=== PATIENT | male | born 1950 | race Caucasian/White ===

== ENCOUNTER → 2020-08-21 06:35 | Outpatient (CLI) | payer MEDICARE, OTHER, SELFPAY ==
--- NOTE | 2020-08-21 | CA_ITS ---
APPROVED REPORT Exam: Pharmacologic Technologist: saul polk, Ht: 5 ft 11 in Wt: 202 lbs BSA: 2.12 m2 HR: 70 bpm BP: 153/87 mmHg Indications: SOA Medical History Medications: Omeprazole,,,,, Asa,,,,, Metformin,,,,, Crestor,,,,, DulOXETINE,,,,, OxYbutynin,,,,, ETODOLAC,,,,, ICOSAPENT,,,,, RIvaROXABAN,,,,, GlimepERIDE,,,,, DilTAiazem,,,,, Caevedilol,,,,, Allergies: Lipitor Cardiac Risk Factors: HTN, Hyperlipidemia, Diabetes (non-insulin) Stress Test Details Test: LEXISCAN HR Resting HR: 87 bpm Max Heart Rate (APMHR): 152 bpm Max HR Achieved: 111 bpm Target HR (85% APMHR): 129 bpm % of APMHR: 73 Recovery HR: 100 bpm BP Resting BP: 153/87 mmHg Max BP: 161/89 mmHg Recovery BP: 118.0/95.0 mmHg ECG Resting ECG: Sinus rhythm Clinical Exercise duration: 04:02 min Highest Stage Achieved: Stress ECG Conclusion Lexiscan portion completed. No symptoms. Occ PVC. Less than 1.5mm ST depression. Images to follow. Electronically signed by : Syd Dejesus, 08/21/2020 10:06:33
--- NOTE | 2020-08-21 06:35 | CA_ITS ---
APPROVED REPORT EXAM: Comprehensive 2D, Doppler, and color-flow Echocardiogram Wood Tool Maker: Aline Garcia RDCS Ht: 5 ft 11 in Wt: 202lbs BSA: 2.12 BP: 128/72 mmHg Indications: SOA,CAD,STENTS,H/O TIA 2D Dimensions LVOT 2.06 cm (M/F) 1.5-2.5 M-Mode Dimensions RVDd 3.01 cm (0.9-2.6) LA Diam 3.77 cm (1.9-4.0) LVDd 5.13 cm (3.5-5.7) Ao Diam 3.36 cm (2.0-3.7) LVDs 4.09 cm (3.5-5.7) IVSd 1.05 cm (0.6-1.1) PWd 0.96 cm (0.6-1.1) EF (Teich) 41.20% FS 20.30% EDV (Teich) 125.50 mL ESV (Teich) 73.80 mL LV Diastology E Decel Time 203.00 (160-240 msec) E/A Ratio 0.5 MED E' 3.00 (< 7 cm/sec) E'/MED E' Ratio 11.80 (>14) LAT E' 6.10 (<10 cm/sec) E/LAT E' Ratio 5.80 (>14) Mitral Valve MV E Max Esa. 35.00 (40-130 cm/s) MV A Velocity 71.00 (40-130 cm/s) E/A Ratio 0.50 MV Decel. Time 203.00 (160-240 ms) MV PHT 60.00 ms Left Ventricle Left atrium is mildly enlarged, left ventricle is normal size, mild concentric left ventricular hypertrophy, visually estimated ejection fraction approximately 40% with marked hypokinesis involving mid to distal septum and anterior apical wall. Grade 1 diastolic dysfunction seen without tissue Doppler evidence of raise left atrial pressure. Right Ventricle Right atrium and right ventricle are normal size and contractility. Aortic Valve Aortic valve is minimally thickened and fibrosed, there is no aortic stenosis, there is mild aortic insufficiency. Mitral Valve Mitral valve leaflets are minimally thickened, there is mild mitral regurgitation. Tricuspid Valve Tricuspid valve is grossly normal, there is mild tricuspid regurgitation, tricuspid regurgitation jet velocity is inadequate for calculation of the right ventricular systolic pressure. Pulmonic Valve Pulmonic valve is poorly visualized. Great Vessels Aortic root is normal size. Pericardium No significant pericardial effusion noted. Conclusion 1. Mildly enlarged left atrium, normal left ventricular size, mild concentric left ventricular hypertrophy, visually estimated ejection fraction 40% with multiple segmental wall motion abnormality described above, grade 1 diastolic dysfunction seen without tissue Doppler evidence of raise left atrial pressure. 2. Mild aortic, mild mitral and tricuspid regurgitation. 3. No significant pericardial effusion noted. Electronically signed by : Syd Dejesus, 08/21/2020 11:18:35
--- NOTE | 2020-08-21 06:35 | NM_ITS ---
APPROVED REPORT Exam: Nuclear Stress Test Indication: short of breath..fatigue Patient Location: Outpatient Stress Tech: Toya ClayCarmen [place] Tech:Angie PavonLEXIS RT(R)(N) Ht: 5 ft 11 in Wt: 202 lbs HR: 70 bpm BP: 152/87 mmHg BSA: 2.12 m2 BMI: 28.1 History: short of breath..fatigue Procedure: Patient received a 0.4 mg of intravenous Lexiscan, resting heart rate 70 bpm, resting blood pressure 153/87 mmHg, with Lexiscan maximum heart rate achived was 105 bpm which is Less than 85 % of the maximum predicted heart rate and blood pressure was 161/89 mmHg. With Lexiscan, patient denied any complaint of chest pain. Electrocardiogram Resting electrocardiogram shows sinus rhythm, with Lexiscan there is less than 1.[address] segment depression noted from baseline EKG. The EKG portion of the Lexiscan Myoview was nondiagnostic. Cardiac Stress and Resting SPECT Images: Cardiac Stress and Resting SPECT images were obtained using technetium 99m Myoview 32.4 mCi stress and 10.78 mCi at rest. Gated SPECT for analysis of segmental wall motion and calculation of the ejection fraction also done. Cardiac stress and resting SPECT images show moderate to large sized area of fixed defect involving the anterior, anterior apical apex and anteroseptal wall consistent with area of myocardial scarring without significant ruchi-infarct ischemia. Computer derived ejection fraction is 38% with marked hypokinesis involving the anterior apical and anteroseptal wall. Right ventricle is normal size and contractility. Conclusion: 1. The EKG portion of the Lexiscan is nondiagnostic. 2. Scintigraphic evidence of myocardial scarring involving the anterior apical, apex and anteroseptal wall without significant ruchi-infarct ischemia, computer derived ejection fraction is 38% with segmental wall motion abnormalities described above, right ventricle is normal size and contractility. 3. Abnormal Lexiscan Myoview study. Electronically signed by : Syd Dejesus, 08/21/2020 11:41:03
== END ==
PROVIDERS: PCP Family Medicine; Visit Provider Urology
DX: E78.5 Hyperlipidemia, unspecified (principal); I10 Essential (primary) hypertension; I25.10 Atherosclerotic heart disease of native coronary artery without angina pectoris; I25.2 Old myocardial infarction; I65.29 Occlusion and stenosis of unspecified carotid artery; Z86.73 Personal history of transient ischemic attack (TIA), and cerebral infarction without residual deficits; Z95.5 Presence of coronary angioplasty implant and graft
CPT/HCPCS: 78452; 93017; 93306; A9502; J2785

== ENCOUNTER 2020-09-03 08:06 | Day surgery (SDC) | payer MEDICARE, OTHER, SELFPAY ==
[2020-09-03] VITALS (10 sets, daily range): BP systolic 119–149; BP diastolic 84–101; PULSE 81–98; RESP 16–20; TEMP 36.4–36.6; O2SAT 91–99; BMI 28.5
--- NOTE | 2020-09-03 07:16 | IR_ITS ---
APPROVED REPORT Patient Location: Outpatient [facility] [place] Rover: LEXIS Haynes RT (R) PROCEDURES Left heart catheterization Left ventriculogram Selective coronary angiogram INDICATION Abnormal Myoview, Known coronary artery disease, Progressively worsening dyspnea/angina pectoris Informed consent was obtained prior to the procedure. COMPLICATIONS NONE Estimated Blood Loss: LESS TAHN 10 ML TECHNIQUE One percent lidocaine used to anesthetize the right anterior aspect of the wrist. The right radial artery was accessed via the Seldinger technique. A 6 [place] sheath was placed in the right radial artery. 2.5 mg of verapamil, 800 mcg of nitroglycerin, 1mg Lidocaine and 5000 U Heparin were given through the arterial sheath. The trap catheter was also used to perform left heart catheterization, left ventriculogram and selective coronary angiogram. At the end of the procedure the sheath was removed good hemostasis was achieved using Traclet band, patient was transferred to the postop holding area in stable condition. ANGIOGRAPHIC RESULTS The left main artery Normal The left anterior descending artery Is a stent in the proximal segment and mid segment in a contiguous manner with no angiographic evidence of in-stent restenosis. There is excellent proximal distal transitioning. The remaining LAD has a distal 40% and 60% stenosis in the vessel less than 2 mm in diameter. The stent in a large first diagonal artery branching off the proximal LAD stent is widely patent with excellent distal transitioning. The diagonal artery is a large vessel The circumflex artery Is nondominant gives rise to a moderate sized ramus intermedius which is widely patent. Circumflex artery itself is nondominant has a proximal 30% stenosis. A small first obtuse marginal artery has a mid vessel 50% stenosis in an area where the diameter is 1.5 mm in diameter The right coronary artery Is a large dominant vessel with mild to moderate diffuse vascular ectasia. There is a mid stenosis which is 50% stenosis when comparing to the vascular ectasia however the [place] vessel is consistent in size with the moderate size posterior descending artery. Stent in the posterior descending artery has mild to moderate concentric 30 to 40% in-stent restenosis. There are calcifications in the mid to distal posterior descending artery which creates 30 to 40% stenosis The [place] ventriculogram reveals Ejection fraction 50% The left ventricular end-diastolic pressure Severely elevated at 30 mmHg IMPRESSION Patent coronary arteries as described above Severely elevated LVEDP which almost certainly accounts for patient's dyspnea Ejection fraction 50% by LV gram PLAN 1. Treat diastolic dysfunction and elevated LVEDP which is etiology for patient's symptoms 2. Medical management for coronary disease Electronically signed by : Uvaldo Fonseca, 09/03/2020 12:41:16
[2020-09-03 08:45] LABS: Coronavirus 19, PCR Not Detected (NotDetected); Influenza A, PCR Not Detected (NotDetected); Influenza B, PCR Not Detected (NotDetected)
[2020-09-03 08:47] LABS: Basophils # 0.1 K/mm3 (0-0.2); Basophils % 0.6 % (0.1-2.0); Eosinophils # 0.5 K/mm3 (0.0-0.4); Hematocrit 39.8 % (42.0-52.0); Hemoglobin 12.9 g/dL (14.1-18.0); Lymphocytes # 1.1 K/mm3 (0.7-4.5); Lymphocytes % 14.2 % (10-50); Mean Corpuscular HGB Conc 32.4 g/dL (31.8-35.4); Mean Corpuscular Hemoglobin 27.8 pg (27.0-31.2); Mean Corpuscular Volume 85.9 fl (80-94); Mean Platelet Volume 8.1 fl (7.4-10.4); Monocytes # 0.5 K/mm3 (0.1-1.0); Monocytes % 6.4 % (1.7-9.3); Neutrophils # 5.6 K/mm3 (1.8-7.8); Neutrophils % 71.8 % (37.0-80.0); Platelet Count 280 K/mm3 (142-424); Red Blood Count 4.63 M/mm3 (4.60-6.20); Red Cell Distribution Width 15.4 % (11.5-17.5); White Blood Count 7.8 K/mm3 (4.8-10.8)
[2020-09-03 08:55] LABS: Anion Gap 14.3 mEq/L (5-15); Blood Urea Nitrogen 22 mg/dl (9-20); Carbon Dioxide 31 mmol/L (22.0-30.0); Chloride 99 mmol/L (98-107); Creatinine Clearance Estimated 62 mL/min (50-200); Estimated Glomerular Filt Rate 47 ml/min (>60); GFR (African American) 56 ML/MIN (>60); Glucose 209 mg/dl (74-100); Potassium 4.3 mmoL/L (3.5-5.1); Sodium 140 mmol/L (136-145)
== END 2020-09-03 13:23 | disposition home or self-care (01) ==
LOC: CATHLAB 08:07
PROVIDERS: PCP Family Medicine; Visit Provider Internal Medicine
DX: I25.5 Ischemic cardiomyopathy (principal); R93.1 Abnormal findings on diagnostic imaging of heart and coronary circulation; E11.9 Type 2 diabetes mellitus without complications; Z79.84 Long term (current) use of oral hypoglycemic drugs; Z79.01 Long term (current) use of anticoagulants; I25.118 Atherosclerotic heart disease of native coronary artery with other forms of angina pectoris; T82.855A Stenosis of coronary artery stent, initial encounter; Z95.5 Presence of coronary angioplasty implant and graft; Z20.822 Contact with and (suspected) exposure to COVID-19; Y83.1 Surgical operation with implant of artificial internal device as the cause of abnormal reaction of the patient, or of later complication, without mention of misadventure at the time of the procedure
CPT/HCPCS: 80048; 85025; 93458; 99152; C1725; C1769; J1644; Q9967; U0003

== ENCOUNTER → 2020-10-05 12:10 | Outpatient (CLI) | payer MEDICARE, OTHER, SELFPAY | PROVIDERS: PCP Family Medicine; Visit Provider Nurse Practitioner Family | DX: G47.9 Sleep disorder, unspecified (principal); R40.0 Somnolence; G47.33 Obstructive sleep apnea (adult) (pediatric) | CPT/HCPCS: G0399 ==

== ENCOUNTER → 2020-10-27 14:45 | Outpatient (CLI) | payer MEDICARE, OTHER, SELFPAY ==
[2020-10-27 16:23] LABS: Anion Gap 15.2 mEq/L (5-15); Blood Urea Nitrogen 24 mg/dl (9-20); Calcium 9.9 mg/dl (8.4-10.2); Carbon Dioxide 29 mmol/L (22.0-30.0); Chloride 102 mmol/L (98-107); Estimated Glomerular Filt Rate 43 ml/min (>60); GFR (African American) 52 ML/MIN (>60); Glucose 102 mg/dl (74-100); Potassium 4.2 mmoL/L (3.5-5.1); Sodium 142 mmol/L (136-145)
[2020-10-27 18:12] LABS: Free Thyroxine Index 2.4 ug/dL (5.93-13.13); T4 (Thyroxine) 7.6 ug/dl (5.53-11.0); Triiodothryronine (T3) Uptake 32 % (23.5-40.5)
[2020-10-27 18:26] LABS: Thyroid Stimulating Hormone 1.58 uIU/mL (0.465-4.68)
== END ==
PROVIDERS: Visit Provider Physician Assistant
DX: E78.2 Mixed hyperlipidemia (principal); I10 Essential (primary) hypertension; I25.10 Atherosclerotic heart disease of native coronary artery without angina pectoris; I49.9 Cardiac arrhythmia, unspecified; I65.23 Occlusion and stenosis of bilateral carotid arteries; Z86.73 Personal history of transient ischemic attack (TIA), and cerebral infarction without residual deficits
CPT/HCPCS: 36415; 80048; 84436; 84443; 84479; 93225; 93226

== ENCOUNTER → 2020-11-25 14:32 | Outpatient (CLI) | payer MEDICARE, OTHER, SELFPAY ==
[2020-11-25 16:29] LABS: Albumin Level 4.1 g/dl (3.5-5.0); Alkaline Phosphatase 82 U/L (38-126); Aspartate Amino Transferase 30 U/L (17-59); Bilirubin,Direct 0.4 mg/dl (0.0-0.4); Bilirubin,Total 0.4 mg/dl (0.2-1.3); Chol/HDL Ratio 4.3 (1-3.5); Cholesterol 138 mg/dl (140-200); HDL Cholesterol 32 mg/dl (40-60); Total Protein,Serum 8.1 g/dl (6.3-8.2); Triglycerides 214 mg/dl (30-150); VLDL Cholesterol 43 mg/dL (0-40)
[2020-11-25 16:36] LABS: Direct LDL Cholesterol 60.19 mg/dL (100-129)
[2020-11-25 16:57] LABS: Alanine Aminotransferase 25 U/L (12-78)
== END ==
PROVIDERS: Visit Provider Urology
DX: C61 Malignant neoplasm of prostate (principal); E11.9 Type 2 diabetes mellitus without complications; E78.5 Hyperlipidemia, unspecified; G47.33 Obstructive sleep apnea (adult) (pediatric); I10 Essential (primary) hypertension; I25.10 Atherosclerotic heart disease of native coronary artery without angina pectoris; I25.2 Old myocardial infarction; I49.9 Cardiac arrhythmia, unspecified; I65.29 Occlusion and stenosis of unspecified carotid artery; Z86.73 Personal history of transient ischemic attack (TIA), and cerebral infarction without residual deficits; Z95.5 Presence of coronary angioplasty implant and graft; Z79.84 Long term (current) use of oral hypoglycemic drugs
CPT/HCPCS: 36415; 80061; 80076

== ENCOUNTER → 2021-03-31 10:37 | Outpatient (CLI) | payer MEDICARE, OTHER, SELFPAY | PROVIDERS: PCP Family Medicine; Visit Provider Physician Assistant | DX: R06.00 Dyspnea, unspecified (principal); R42 Dizziness and giddiness; I49.9 Cardiac arrhythmia, unspecified | CPT/HCPCS: 93270 ==

== ENCOUNTER → 2021-05-28 13:32 | Outpatient (CLI) | payer MEDICARE, OTHER, SELFPAY | PROVIDERS: PCP Family Medicine; Visit Provider Internal Medicine Cardiovascular Disease | DX: I48.0 Paroxysmal atrial fibrillation (principal) | CPT/HCPCS: 93270 ==

== ENCOUNTER → 2021-11-16 07:38 | Outpatient (CLI) | payer MEDICARE, OTHER, SELFPAY ==
--- NOTE | 2021-11-16 | CA_ITS ---
APPROVED REPORT Exam: Pharmacologic Technologist: Gi Almanza, Ht: 5 ft 11 in Wt: 201 lbs BSA: 2.11 m2 HR: 71 bpm BP: 155/79 mmHg Rhythm: NSR, RIGHTWARD AXIS CANNOT R/O SEPTAL OR Medical History Medical History: HTN, Hyperlipidemia, Diabetes Medications: Omeprazole,,,,, Aspirin,,,,, Verapamil,,,,, Metformin,,,,, Coenzyme,,,,, Crestor,,,,, XaRELTO,,,,, Coreg,,,,, CHlorthalidone,,,,, DulOXETINE,,,,, Meclizine,,,,, JanuIVA,,,,, Allergies: ATORVASTATIN Cardiac Risk Factors: HTN, , Hyperlipidemia, Diabetes , FHX of CAD Stress Test Details Test: LEXISCAN HR Resting HR: 73 bpm Max Heart Rate (APMHR): 151.339239 bpm Max HR Achieved: 98 bpm Target HR (85% APMHR): 128.418197 bpm % of APMHR: 64.90 Recovery HR: 86 bpm BP Resting BP: 155/79 mmHg Max BP: 158/89 mmHg Recovery BP: 138.0/85.0 mmHg ECG Resting ECG: NSR, RIGHTWARD AXIS, CANNOT R/O OLD SEPTAL OR Clinical Exercise duration: 04:00 min Highest Stage Achieved: Exercise capacity: 1.0 METs Stress ECG Conclusion PT HAD SOA, STOMACH DISCOMFORT NO CP NO SIGNIFICANT CHANGES UNREMARKABLE LEXISCAN STRESS MYOVIEW IMAGES REPORTED SEPARATELY Electronically signed by : Syd Dejesus MD 11/17/2021 06:07:54
--- NOTE | 2021-11-16 07:38 | NM_ITS ---
APPROVED REPORT Exam: Nuclear Stress Test Indication: CAD, 4 STENTS, H/O IA, HTN, DM, HYPERLIPIDEMIA, SOB, SYNCOPE Patient Location: Outpatient Stress Tech: Gi Almanza [place] Tech:LEXIS Carmona RT (R)(N)(M) Ht: 5 ft 11 in Wt: 200 lbs HR: 71 bpm BP: 155/79 mmHg BSA: 2.11 m2 TID: 1.18 BMI: 27.8 History: CAD, 4 STENTS, H/O IA, HTN, DM, HYPERLIPIDEMIA, SOB, SYNCOPE Procedure: Patient received a 0.4 mg of intravenous Lexiscan, resting heart rate 71 bpm, resting blood pressure 155/79 mmHg, with Lexiscan maximum heart rate achived was 96 bpm which is 85 % of the maximum predicted heart rate and blood pressure was 147/77 mmHg. With Lexiscan, patient denied any complaint of chest pain. Electrocardiogram Resting electrocardiogram shows sinus rhythm anteroseptal infarct age-indeterminate, with Lexiscan there is less than 1.[address] segment depression noted from the baseline EKG. The EKG portion of the Lexiscan is nondiagnostic. Cardiac Stress and Resting SPECT Images: Cardiac Stress and Resting SPECT images were obtained using technetium 99m Myoview 31.6 mCi stress and 10.69 mCi at rest. Gated SPECT for analysis of segmental wall motion and calculation of the ejection fraction also done. Prone images were also obtained. Cardiac stress and rest SPECT images show partial reversible defect and moderate sized area involving the anterior apical, and anteroseptal wall consistent with area of mixed ischemia and scar, computer derived ejection fraction of 38% with moderate anterior apical and anteroseptal wall hypokinesis, right ventricle is normal size and contractility. Conclusion: 1. The EKG portion of the Lexiscan is nondiagnostic. 2. Scintigraphic evidence of mixed ischemia and scar involving the anterior apical and anteroseptal wall, computer derived ejection fraction is 38% with segmental wall motion abnormality as described above, right ventricle is normal size and contractility. 3. Abnormal Lexiscan Myoview study. Electronically signed by : Syd Dejesus MD 11/17/2021 06:11:15
--- NOTE | 2021-11-16 07:54 | CA_ITS ---
APPROVED REPORT EXAM: Comprehensive 2D, Doppler, and color-flow Echocardiogram Soil Engineer: Macey Dee CRT Ht: 5 ft 11 in Wt: 201lbs BSA: 2.11 BP: 138/75 mmHg Indications: Shortness of Breath, Diabetes, CAD, Hyperlipidemia, Hypertension/HDD, hx TIA 2D Dimensions LVOT 2.01 cm (M/F) 1.5-2.5 LA Volume 44.10 mL LA Volume Index 20.90 mL/m2 (M/F) 16-34 M-Mode Dimensions RVDd 3.01 cm (0.9-2.6) LA Diam 3.93 cm (1.9-4.0) LVDd 5.18 cm (3.5-5.7) Ao Diam 5.13 cm (2.0-3.7) LVDs 3.54 cm (3.5-5.7) IVSd 1.81 cm (0.6-1.1) PWd 1.04 cm (0.6-1.1) EF (Teich) 59.30% FS 31.70% EDV (Teich) 128.40 mL TAPSE 2.82 (<1.7) ESV (Teich) 52.30 mL LV Diastology E Decel Time 177.00 (160-240 msec) E/A Ratio 0.68 MED E' 5.10 (< 7 cm/sec) MED A' 8.40 cm/s E'/MED E' Ratio 12.10 (>14) LAT E' 5.70 (<10 cm/sec) LAT A' 10.50 cm/s E/LAT E' Ratio 10.82 (>14) Aortic Valve AI PHT 474.00 ms AO Peak GR. 4.00 mmHg Mitral Valve MV E Max Esa. 62.00 (40-130 cm/s) MV A Velocity 91.00 (40-130 cm/s) E/A Ratio 0.68 MV Decel. Time 177.00 (160-240 ms) MV PHT 52.00 ms Pulmonary Valve PV Peak Velocity 163.00 (50-150 cm/s) Tricuspid Valve TR P. Velocity 192.00 cm/s RAP Estimate 10.00 mmHg RVSP 24.70 mmHg Left Ventricle Left atrium is mildly enlarged, left ventricle is normal size mild concentric left ventricular hypertrophy, estimated ejection fraction approximately 40 to 45%, there is marked hypokinesis involving mid to distal septum and anterior apical wall. Grade 1 diastolic dysfunction seen without tissue Doppler evidence of raise left atrial pressure. Right Ventricle Right atrium and right ventricle are mildly enlarged with normal contractility. Aortic Valve Aortic valve is thickened and calcified without aortic stenosis, there is trace aortic insufficiency. Mitral Valve Mitral valve leaflets are minimally thickened, there is trace mitral regurgitation. Tricuspid Valve Tricuspid valve grossly normal, there is trace tricuspid regurgitation. Pulmonic Valve Pulmonic valve is poorly visualized. Great Vessels Aortic root is normal size. Inferior vena cava is normal size with normal contractility. Pericardium No significant pericardial effusion noted. Conclusion 1. Mild biatrial enlargement, normal left ventricular size, mild concentric left ventricular hypertrophy, estimated ejection fraction 40 to 45% with multiple segmental wall motion abnormality described above, grade 1 diastolic dysfunction seen without tissue Doppler evidence of raise left atrial pressure. 2. Mildly enlarged right ventricle with normal contractility. 3. Thickened and calcified aortic valve without aortic stenosis, there is trace aortic insufficiency. 4. Trace mitral and tricuspid regurgitation. 5. No significant pericardial effusion noted. 6. Inferior vena cava is normal size with normal inspiratory collapse. Electronically signed by : Syd Dejesus MD 11/16/2021 19:13:12
== END ==
PROVIDERS: PCP Family Medicine; Visit Provider Nurse Practitioner Family
DX: E11.9 Type 2 diabetes mellitus without complications (principal); E78.2 Mixed hyperlipidemia; I10 Essential (primary) hypertension; I25.10 Atherosclerotic heart disease of native coronary artery without angina pectoris; I25.2 Old myocardial infarction; R42 Dizziness and giddiness; Z86.73 Personal history of transient ischemic attack (TIA), and cerebral infarction without residual deficits; Z95.5 Presence of coronary angioplasty implant and graft; Z79.84 Long term (current) use of oral hypoglycemic drugs
CPT/HCPCS: 78452; 93017; 93306; A9502; J2785

== ENCOUNTER 2021-11-29 08:08 | Day surgery (SDC) | payer MEDICARE, OTHER, SELFPAY ==
[2021-11-29] VITALS (13 sets, daily range): BP systolic 103–184; BP diastolic 51–101; PULSE 61–81; RESP 17–18; O2SAT 92–98; BMI 29.4
--- NOTE | 2021-11-29 07:08 | IR_ITS ---
APPROVED REPORT Patient Location: Outpatient Sales Commissions Analyst: LEXIS Chacon RT (R) PROCEDURES Left heart catheterization Left ventriculogram Selective coronary angiogram Drug-eluting stent deployment to the proximal mid dominant right coronary INDICATION Coronary artery disease, Angina pectoris, Abnormal Myoview Informed consent was obtained prior to the procedure. COMPLICATIONS None Estimated Blood Loss: Less than 10 mls TECHNIQUE One percent lidocaine used to anesthetize the right anterior aspect of the wrist. The right radial artery was accessed via the Seldinger technique. A 6 [place] sheath was placed in the right radial artery. 2.5 mg of verapamil, 800 mcg of nitroglycerin, 1mg Lidocaine and 5000 U Heparin were given through the arterial sheath. The papa catheter was also used to perform selective coronary angiogram. At the end the diagnostic angiogram therapeutic heparin was administered giving a therapeutic ACT and the guide catheter was placed in the right coronary artery followed by a Choice PT extra-support wire. Initially a 5 mm x 26 mm resolute [place] stent was deployed in the proximal segment. The stent would not completely traverse the stenosis without performing angioplasty. When the stent was pulled back it was immediately noticed that it was starting to slip off the balloon therefore the balloon was immediately inflated at 20 maría while leaving approximately 5 mm of an deployed distal stent. A guide liner was used along with a 1.25 x 20 mm balloon being advanced into the on deployed portion of the stent. This was deployed at 20 maría. This was followed with a 2 mm x 20 mm balloon and then followed with a 3 mm x 20 mm balloon. The 3 mm balloon expanded the distal portion of the stent as well as predilated the concentric stenosis. Eventually a 5 mm x 18 mm resolute [place] stent was then deployed distal to the first stent if still overlapping it at 24 maría. The balloon was brought back and deployed at 24 maría through the midportion and proximal portion of all stents. There were excellent angiographic results with JACOB-3 flow being present before and after the procedure. At the end the procedure the apparatus was removed the sheath was removed good hemostasis was achieved using TR banding patient was transferred to the postop putting in stable addition ANGIOGRAPHIC RESULTS The left main artery Normal The left anterior descending artery Has a stent in the proximal to mid segment which is widely patent free of in-stent restenosis with excellent proximal distal transitioning. A bifurcating stent in the ostial segment of the first diagonal artery is also widely patent with excellent ostial and distal transitioning. The distal portion of this large first diagonal artery has 50 and 60% stenoses The circumflex artery Is a nondominant vessel and gives rise to a ramus intermedius which has proximal 30% stenoses while the circumflex artery itself has proximal 30% stenosis in the distal 50% stenosis and a 2 mm terminal obtuse marginal artery The right coronary artery Is a massively large dominant vessel has a 70% concentric mid vessel stenosis. Distally there are additional 60 and 70% stenosis in a large posterior descending artery with diffuse 30 and 40% stenoses. The BA[place]A ventriculogram reveals Not performed The left ventricular end-diastolic pressure Not measured IMPRESSION Severe proximal and mid vessel dominant right coronary stenosis with successful stenting reducing the severe disease to 0% with 2 contiguous drug-eluting stents Widely patent left coronary artery circulation as described above PLAN 1. Dual antiplatelet therapy with Plavix 75 mg a day combined with Xarelto for
[2021-11-29 08:40] LABS: Basophils % 0.7 % (0.1-2.0); Eosinophils # 0.3 K/mm3 (0.0-0.4); Eosinophils % 4.6 % (0.1-12.0); Hematocrit 30.9 % (42.0-52.0); Hemoglobin 9.5 g/dL (14.1-18.0); Lymphocytes # 0.8 K/mm3 (0.7-4.5); Lymphocytes % 13.6 % (10-50); Mean Corpuscular HGB Conc 30.6 g/dL (31.8-35.4); Mean Corpuscular Hemoglobin 22.1 pg (27.0-31.2); Mean Corpuscular Volume 72.2 fl (80-94); Mean Platelet Volume 8.9 fl (7.4-10.4); Monocytes # 0.3 K/mm3 (0.1-1.0); Neutrophils # 4.3 K/mm3 (1.8-7.8); Neutrophils % 75.2 % (37.0-80.0); Platelet Count 242 K/mm3 (142-424); Red Blood Count 4.28 M/mm3 (4.60-6.20); Red Cell Distribution Width 19.2 % (11.5-17.5); White Blood Count 5.7 K/mm3 (4.8-10.8)
[2021-11-29 08:44] LABS: Chloride 101 mmol/L (98-107); Sodium 140 mmol/L (136-145)
[2021-11-29 08:45] LABS: Potassium 4.3 mmoL/L (3.5-5.1)
[2021-11-29 08:48] LABS: Anion Gap 13.3 mEq/L (5-15); Blood Urea Nitrogen 21 mg/dl (9-20); Calcium 8.9 mg/dl (8.4-10.2); Carbon Dioxide 30 mmol/L (22.0-30.0); Creatinine Clearance Estimated 52 mL/min (50-200); Estimated Glomerular Filt Rate 38 ml/min (>60); GFR (African American) 45 ML/MIN (>60); Glucose 207 mg/dl (74-100)
[2021-11-29 09:19] LABS: Thyroid Stimulating Hormone 2.36 uIU/mL (0.465-4.68)
[2021-11-29 09:31] LABS: Alanine Aminotransferase 23 U/L (12-78); Alkaline Phosphatase 94 U/L (38-126); Aspartate Amino Transferase 24 U/L (17-59); Bilirubin,Direct 0.3 mg/dl (0.0-0.4); Bilirubin,Indirect 0.1 mg/dL (0.0-0.9); Bilirubin,Total 0.4 mg/dl (0.2-1.3); Bilirubin,Unconjugated 0.1 mg/dL (0.0-1.1); Cholesterol 163 mg/dl (140-200); Total Protein,Serum 7.8 g/dl (6.3-8.2); Triglycerides 129 mg/dl (30-150); VLDL Cholesterol 26 mg/dL (0-40)
[2021-11-29 09:32] LABS: Chol/HDL Ratio 4.2 (1-3.5); HDL Cholesterol 39 mg/dl (40-60); Magnesium 1.8 mg/dl (1.6-2.3)
[2021-11-29 09:43] LABS: Direct LDL Cholesterol 83.47 mg/dL (100-129)
[2021-11-29 09:49] LABS: Free T4 (Free Thyroxine) 0.94 ng/dl (0.78-2.19)
[2021-11-29 13:06] LABS: CATHL Activated Clotting Time 215 SEC (74-125)
--- NOTE | 2021-11-29 15:00 | HMH.PHACL ---
PHA Assistant Media Planner Discharge Med Die Grinder: [place] has received discharge medication counseling on the following medications: - ASPIRIN (PREVIOUSLY TAKING) - PLAVIX (NEW, COUNSELED ON INCREASED RISK OF BLEEDING ESPECIALLY WHEN TAKING ASA AND XARELTO, TAKE ALL 3 BLOOD THINNERS FOR 30 DAYS AND THEN STOP ASA, WILL HAVE F/U WITH PROVIDER BEFORE 30 DAYS BUT TO CONFIRM THAT DISCONTINUATION OF ASA AT F/U) - XARELTO (PREVIOUSLY TAKING) -ROSUVASTATIN (PREVIOUSLY TAKING) - VALSARTAN (PREVIOUSLY TAKING) - CARVEDILOL (PREVIOUSLY TAKING) PATIENT EXPRESSED UNDERSTANDING AND HAD NO FURTHER QUESTIONS.
== END 2021-11-29 15:28 | disposition home or self-care (01) ==
PROVIDERS: Nurse Practitioner Family; PCP Family Medicine; Visit Provider Internal Medicine
DX: I25.118 Atherosclerotic heart disease of native coronary artery with other forms of angina pectoris (principal); R94.39 Abnormal result of other cardiovascular function study; E11.9 Type 2 diabetes mellitus without complications; E78.2 Mixed hyperlipidemia; I10 Essential (primary) hypertension; I25.2 Old myocardial infarction; Z86.73 Personal history of transient ischemic attack (TIA), and cerebral infarction without residual deficits; Z95.5 Presence of coronary angioplasty implant and graft; Z79.899 Other long term (current) drug therapy; Z79.01 Long term (current) use of anticoagulants
CPT/HCPCS: 36415; 80048; 80061; 80076; 83735; 84439; 84443; 85025; 85347; 92928; 93458; 99152; 99153; C1725; C1769; C1876; C9600; J1644; Q9967

== ENCOUNTER 2021-12-14 09:41 | Outpatient (RCR) | payer MEDICARE, OTHER, SELFPAY | END 2022-02-04 10:45 | disposition home or self-care (01) | LOC: PT 09:41 | PROVIDERS: Visit Provider Internal Medicine | DX: I25.10 Atherosclerotic heart disease of native coronary artery without angina pectoris (principal); Z95.5 Presence of coronary angioplasty implant and graft | CPT/HCPCS: 93798 ==

== ENCOUNTER → 2021-12-15 14:29 | Outpatient (CLI) | payer MEDICARE, OTHER, SELFPAY ==
[2021-12-15 17:00] LABS: Chloride 100 mmol/L (98-107); Potassium 4.2 mmoL/L (3.5-5.1); Sodium 140 mmol/L (136-145)
[2021-12-15 17:03] LABS: Anion Gap 15.2 mEq/L (5-15); Blood Urea Nitrogen 26 mg/dl (9-20); Calcium 9.4 mg/dl (8.4-10.2); Carbon Dioxide 29 mmol/L (22.0-30.0); Estimated Glomerular Filt Rate 33 ml/min (>60); GFR (African American) 40 ML/MIN (>60); Glucose 166 mg/dl (74-100)
== END ==
PROVIDERS: PCP Family Medicine; Visit Provider Physician Assistant
DX: E11.9 Type 2 diabetes mellitus without complications (principal); E78.2 Mixed hyperlipidemia; G47.33 Obstructive sleep apnea (adult) (pediatric); I10 Essential (primary) hypertension; I25.10 Atherosclerotic heart disease of native coronary artery without angina pectoris; I25.2 Old myocardial infarction; R06.09 Other forms of dyspnea; Z86.73 Personal history of transient ischemic attack (TIA), and cerebral infarction without residual deficits; Z95.5 Presence of coronary angioplasty implant and graft; Z79.84 Long term (current) use of oral hypoglycemic drugs
CPT/HCPCS: 36415; 80048

== ENCOUNTER → 2021-12-27 13:03 | Outpatient (CLI) | payer MEDICARE, OTHER, SELFPAY ==
[2021-12-27 17:33] LABS: Anion Gap 19.5 mEq/L (5-15); Blood Urea Nitrogen 27 mg/dl (9-20); Calcium 10.1 mg/dl (8.4-10.2); Carbon Dioxide 28 mmol/L (22.0-30.0); Chloride 98 mmol/L (98-107); Estimated Glomerular Filt Rate 31 ml/min (>60); GFR (African American) 38 ML/MIN (>60); Glucose 114 mg/dl (74-100); Potassium 4.5 mmoL/L (3.5-5.1); Sodium 141 mmol/L (136-145)
== END ==
PROVIDERS: PCP Family Medicine; Visit Provider Physician Assistant
DX: E78.2 Mixed hyperlipidemia (principal); I25.10 Atherosclerotic heart disease of native coronary artery without angina pectoris; I25.2 Old myocardial infarction
CPT/HCPCS: 36415; 80048

== ENCOUNTER → 2022-01-12 09:40 | Outpatient (CLI) | payer MEDICARE, OTHER, SELFPAY ==
[2022-01-12 10:31] LABS: Basophils % 0.5 % (0.1-2.0); Eosinophils # 0.3 K/mm3 (0.0-0.4); Eosinophils % 4.3 % (0.1-12.0); Hematocrit 30.3 % (42.0-52.0); Hemoglobin 9.3 g/dL (14.1-18.0); Lymphocytes # 0.9 K/mm3 (0.7-4.5); Lymphocytes % 15.2 % (10-50); Mean Corpuscular HGB Conc 30.7 g/dL (31.8-35.4); Mean Corpuscular Hemoglobin 22.2 pg (27.0-31.2); Mean Corpuscular Volume 72.4 fl (80-94); Mean Platelet Volume 8.9 fl (7.4-10.4); Monocytes # 0.4 K/mm3 (0.1-1.0); Monocytes % 7.3 % (1.7-9.3); Neutrophils # 4.2 K/mm3 (1.8-7.8); Neutrophils % 72.7 % (37.0-80.0); Platelet Count 246 K/mm3 (142-424); Red Blood Count 4.18 M/mm3 (4.60-6.20); Red Cell Distribution Width 18.3 % (11.5-17.5); White Blood Count 5.7 K/mm3 (4.8-10.8)
[2022-01-12 10:52] LABS: Anion Gap 14.3 mEq/L (5-15); Blood Urea Nitrogen 25 mg/dl (9-20); Calcium 9.8 mg/dl (8.4-10.2); Carbon Dioxide 27 mmol/L (22.0-30.0); Chloride 103 mmol/L (98-107); Estimated Glomerular Filt Rate 31 ml/min (>60); GFR (African American) 38 ML/MIN (>60); Glucose 231 mg/dl (74-100); Potassium 4.3 mmoL/L (3.5-5.1); Sodium 140 mmol/L (136-145)
== END ==
PROVIDERS: PCP Family Medicine; Visit Provider Physician Assistant
DX: E11.9 Type 2 diabetes mellitus without complications (principal); E78.2 Mixed hyperlipidemia; G47.33 Obstructive sleep apnea (adult) (pediatric); I10 Essential (primary) hypertension; I25.10 Atherosclerotic heart disease of native coronary artery without angina pectoris; I25.2 Old myocardial infarction; R06.09 Other forms of dyspnea; Z86.73 Personal history of transient ischemic attack (TIA), and cerebral infarction without residual deficits; Z95.5 Presence of coronary angioplasty implant and graft; Z79.84 Long term (current) use of oral hypoglycemic drugs
CPT/HCPCS: 36415; 80048; 85025

== ENCOUNTER 2022-01-27 12:35 | Day surgery (SDC) | payer MEDICARE, OTHER, SELFPAY ==
--- NOTE | 2022-01-21 09:02 | SUR.PREOP ---
Spoke w/ Dagmar - Cardiology- patient to stop plavix- 5days, Xarelto-2 days
[2022-01-21 09:04] VITALS: BMI 29.4
[2022-01-27 13:04] VITALS: BP 156/68; PULSE 71; RESP 18; TEMP 36.6; O2SAT 97
--- NOTE | 2022-01-27 13:51 | EXP.ANES.CKL ---
[facility] Disclaimer: The information contained in this section may have been updated after the patient was seen, as this information can be updated by other users. Medical History Abnormal nuclear stress test Atypical angina Cardiac dysrhythmia Coronary artery disease Coronary artery stenosis Dizziness History of CT (myocardial infarction) History of TIA (transient ischemic attack) HLD (hyperlipidemia) HTN (hypertension) JUSTICE (obstructive sleep apnea) Surgical History History of cardiac catheterization History of coronary artery stent placement Hx of prostatectomy Family History Brother Colon cancer Other Family history of hyperlipidemia Social History Smoking Status: Never smoker second hand exposure: No alcohol intake: never substance use type: denies use current occupational status: retired Travel in the last 8 weeks: None household members: spouse housing: house lives independently: Yes marital status: current occupational exposures/hazards: No caffeine: Yes special mariangel needs: No agree to transfusion: No do you feel safe at home: Yes victim of physical abuse: No victim of emotional abuse: No victim of sexual abuse: No would you like helpful sources: No [facility] Anesthesia Checklist Patient Identification Patient Identification: Arm Band Structural Data Admitted From: Home Planned Operative Procedure/s: Colonoscopy Consent for Planned Operative Procedure(s) Verified: Yes Verified Documents: Surgical Consent NPO Status Verified Time NPO: 05:00 Airway Assessment C-Spine Mobility Assessed: Yes TMJ Mobility Assessed: Yes Neurological Assessment Level of Consciousness: Awake, Alert and Appropriate Anesthesia Plan Anesthesia Risk discussed: Yes ASA Class: III Anesthesia Type: MAC
[2022-01-27 14:08] VITALS: O2SAT 97
[2022-01-27 14:35] VITALS: BP 93/60; PULSE 71; RESP 16; TEMP 36.5; O2SAT 95
--- NOTE | 2022-01-27 14:35 | HMH.SCOPE ---
Procedure: Date: 01/27/22 Patient Date of :: 1950 Procedure Performed:: Colonoscopy and polypectomy Indications:: Anemia Performing Provider:: Yue Narvaez MD Referring Provider:: Maxwell Mccormack Sedation:: Propofol Procedure:: After placing the patient in the left lateral decubitus position, the colonoscopy was gently inserted into the rectum and under direct visualization advanced to the cecum which was identified by transillumination in the right lower quadrant, identification of the ileocecal valve, appendiceal orifice, and cecal strap. Color, texture, mucosa, and anatomy of the colon were carefully examined with the scope. Findings:: Anal canal: normal Rectum: normal Sigmoid colon: normal, polyps x 3 removed with forceps and cold snare Descending colon: normal without polyps or inflammatory changes Splenic flexure: normal Transverse colon: normal without polyps or inflammatory changes Hepatic flexure: normal Ascending colon: normal without polyps or inflammatory changes Cecum: normal Terminal ileum: not visualized Impression: sigmoid polyps x 3 Specimens:: Sigmoid polyps Recommendations:: Repeat evaluation in about THREE years or so, sooner if clinically indicated Complications:: None Estimated blood obtained (mL): 0
[2022-01-27 14:45] VITALS: BP 106/70; PULSE 70; RESP 17; O2SAT 100
[2022-01-27 14:55] VITALS: BP 134/74; PULSE 75; RESP 16; O2SAT 97
[2022-01-27 15:06] VITALS: BP 136/72; PULSE 70; RESP 17; O2SAT 100
[2022-01-28 07:37] LABS: POC Glucose,Bedside 148 (70-110)
== END 2022-01-27 15:15 | disposition home or self-care (01) ==
PROVIDERS: PCP Family Medicine; Visit Provider Internal Medicine Gastroenterology
PROC: 0DJD8ZZ Inspection of Lower Intestinal Tract, Via Natural or Artificial Opening Endoscopic (ICD-10-PCS; CPT 45378; principal; 2022-01-27 14:00)
DX: D64.9 Anemia, unspecified (principal); D12.5 Benign neoplasm of sigmoid colon; E11.9 Type 2 diabetes mellitus without complications; Z79.899 Other long term (current) drug therapy
CPT/HCPCS: 45385; 82962; 88305

== ENCOUNTER 2022-06-20 10:57 | Emergency (ER) | payer MEDICARE, OTHER, SELFPAY ==
[2022-06-20 11:10] VITALS: BP 126/81; PULSE 84; RESP 20; O2SAT 95; BMI 29.0
--- NOTE | 2022-06-20 11:14 | XR_ITS ---
FINAL REPORT CLINICAL HISTORY: FELL, rt knee pain FINDINGS: RIGHT KNEE 3 views of the right knee were obtained. There is no acute fracture or dislocation. There are mild degenerative changes. Sclerotic area is seen in the distal femur which could represent enchondroma or infarct. Vascular calcifications are noted. Visualized joint spaces are normally aligned. Soft tissues are unremarkable. IMPRESSION: No acute bony abnormality. Reviewed, Interpreted and Dictated by Nimesh Giang III, MD Transcribed by Heena Little Authenticated and [facility]
[2022-06-20 11:20] VITALS: BP 126/81; PULSE 84; RESP 20; TEMP 36.8; O2SAT 95; BMI 29.1
--- NOTE | 2022-06-20 11:24 | EXP.UTC ---
Discharge Plan Disposition Patient Disposition: Home, Self-Care Condition: Good Prescriptions Prescriptions: New cephalexin 500 mg capsule 500 mg PO QID Qty: 40 0RF mupirocin 2 % ointment 1 applic topical TID 7 Days Qty: 15 0RF No Action Januvia 100 mg tablet 100 mg PO DAILY Label Comments: TAKE 1 TABLET 1 TIME EACH DAY omeprazole 20 mg capsule,delayed release(DR/EC) 20 mg PO DAILY etodolac 400 mg tablet 400 mg PO BID glimepiride 4 mg tablet 4 mg PO BID metformin 1,000 mg tablet 1,000 mg PO BID coenzyme Q10 200 mg/gram oral powder 200 mg/gram powder 200 mg PO DAILY duloxetine 60 mg capsule,delayed release(DR/EC) 60 mg PO BID Label Comments: TAKE TWO CAPSULES EACH DAY meclizine 25 mg tablet 25 mg PO TID Label Comments: TAKE 1 TABLET 3 TIMES EACH DAY pnd DIZZINESS rosuvastatin [Crestor] 20 mg tablet 20 mg PO DAILY Qty: 90 3RF clopidogrel 75 mg tablet See Rx Instructions .ROUTE .COMPLEX Qty: 30 3RF Dose Instruction: TAKE 1 TABLET 1 TIME EACH DAY Rx Instructions: TAKE 1 TABLET 1 TIME EACH DAY chlorthalidone 25 mg tablet See Rx Instructions .ROUTE .COMPLEX Qty: 90 1RF Dose Instruction: TAKE 1 TABLET 1 TIME EACH DAY FOR FLUID Rx Instructions: TAKE 1 TABLET 1 TIME EACH DAY FOR FLUID carvedilol [Coreg] 25 mg tablet 25 mg PO BID Qty: 60 5RF Rx Instructions: must administer with a meal/food valsartan 80 mg tablet See Rx Instructions .ROUTE .COMPLEX Qty: 90 1RF Dose Instruction: TAKE 1 TABLET 1 TIME EACH DAY FOR HIGH BLOOD PRESSURE Rx Instructions: TAKE 1 TABLET 1 TIME EACH DAY FOR HIGH BLOOD PRESSURE Xarelto 2.5 mg tablet See Rx Instructions .ROUTE .COMPLEX Qty: 180 1RF Dose Instruction: TAKE 1 TABLET 2 TIMES EACH DAY FOR BLOOD THINNER Rx Instructions: TAKE 1 TABLET 2 TIMES EACH DAY FOR BLOOD THINNER Referrals Follow up/Referrals: Len Sam DO [Staff Physician] - See instructions Maxwell Mccormack [Primary Care Provider] - See instructions Activity Restrictions/Add. Instructions Additional Instructions/Restrictions: Rest the extremity, Elevate the extremity as tolerated while you are resting. Take tylenol for pain. Follow up with Dr. Sam (orthopedics). I put in a referral but you need to call his office and schedule an appointment. Follow up with your regular doctor. GO TO THE ER FOR ANY WORSENING SYMPTOMS Clinical Impressions Clinical Impression: Contusion of knee, right, Cellulitis of knee, right Instructions Patient Instructions: Contusion, Cellulitis, DI for Contusion Discharge ED Provider: Ama[facility] HPI General Stated complaint: [id number] fell at home, right knee pain Mode of Arrival: Ambulatory Source of Information: Patient Limitations: No Limitations Time Seen by Provider: 06/20/22 11:23 History of Present Illness Provider Complaint: He fell at home 4 days ago. He came down on his right knee. Since then he has had pain and swelling of the area of that knee. He denies any other injury. Related Data Home Medications Medication Instructions Recorded Confirmed etodolac 400 mg tablet 400 mg PO BID Osteoarthritis 08/18/20 02/15/22 glimepiride 4 mg tablet 4 mg PO BID Diabetes 08/18/20 02/15/22 metformin 1,000 mg tablet 1,000 mg PO BID Diabetes 08/18/20 02/15/22 omeprazole 20 mg capsule,delayed 20 mg PO DAILY GERD 08/18/20 02/15/22 release coenzyme Q10 200 mg/gram oral 200 mg PO DAILY Supplement 11/25/20 02/15/22 powder (H2Q CoQ10) duloxetine 60 mg capsule,delayed 60 mg PO BID Depression 02/24/21 02/15/22 release sitagliptin phosphate 100 mg 100 mg PO DAILY Diabetes 05/28/21 02/15/22 tablet (Januvia) meclizine 25 mg tablet 25 mg PO TID dizziness 11/01/21 02/15/22 Previous Rx's Medication Instructions Recorded rosuvastatin 20 mg tablet (Crestor) 20 mg PO DAILY Cholesterol #90
[2022-06-20 13:03] VITALS: BP 126/81; PULSE 84; RESP 20; TEMP 36.8; O2SAT 95
== END 2022-06-20 13:08 | disposition home or self-care (01) ==
LOC: ER 11:12 → UTC 11:12
PROVIDERS: Emergency Provider Nurse Practitioner Family; PCP Family Medicine
DX: S80.01XA Contusion of right knee, initial encounter (principal); L03.115 Cellulitis of right lower limb; I10 Essential (primary) hypertension; E78.5 Hyperlipidemia, unspecified; E11.9 Type 2 diabetes mellitus without complications; K21.9 Gastro-esophageal reflux disease without esophagitis; W19.XXXA Unspecified fall, initial encounter; Z79.84 Long term (current) use of oral hypoglycemic drugs
CPT/HCPCS: 73562; 99204; 99212; G0463

== ENCOUNTER → 2022-09-14 16:04 | Outpatient (CLI) | payer MEDICARE, OTHER, SELFPAY ==
[2022-09-14 16:42] LABS: Basophils % 0.4 % (0.1-2.0); Eosinophils # 0.4 K/mm3 (0.0-0.4); Eosinophils % 4.8 % (0.1-12.0); Hematocrit 35.4 % (42.0-52.0); Hemoglobin 11.3 g/dL (14.1-18.0); Lymphocytes # 1.4 K/mm3 (0.7-4.5); Lymphocytes % 18.5 % (10-50); Mean Corpuscular HGB Conc 31.9 g/dL (31.8-35.4); Mean Corpuscular Hemoglobin 25.7 pg (27.0-31.2); Mean Corpuscular Volume 80.7 fl (80-94); Mean Platelet Volume 8.5 fl (7.4-10.4); Monocytes # 0.6 K/mm3 (0.1-1.0); Monocytes % 7.8 % (1.7-9.3); Neutrophils # 5.1 K/mm3 (1.8-7.8); Neutrophils % 68.5 % (37.0-80.0); Platelet Count 240 K/mm3 (142-424); Red Blood Count 4.39 M/mm3 (4.60-6.20); Red Cell Distribution Width 19.1 % (11.5-17.5); White Blood Count 7.5 K/mm3 (4.8-10.8)
[2022-09-14 17:13] LABS: Alanine Aminotransferase 27 U/L (12-78); Albumin Level 4.2 g/dl (3.5-5.0); Alkaline Phosphatase 108 U/L (38-126); Anion Gap 12.2 mEq/L (5-15); Aspartate Amino Transferase 25 U/L (17-59); Bilirubin,Indirect 0.3 mg/dL (0.0-0.9); Bilirubin,Total 0.3 mg/dl (0.2-1.3); Bilirubin,Unconjugated 0.4 mg/dL (0.0-1.1); Blood Urea Nitrogen 25 mg/dl (9-20); Carbon Dioxide 31 mmol/L (22.0-30.0); Chloride 100 mmol/L (98-107); Chol/HDL Ratio 4.3 (1-3.5); Cholesterol 142 mg/dl (140-200); Estimated Glomerular Filt Rate 27 ml/min (>60); GFR (African American) 33 ML/MIN (>60); Glucose 188 mg/dl (74-100); HDL Cholesterol 33 mg/dl (40-60); Potassium 4.2 mmoL/L (3.5-5.1); Sodium 139 mmol/L (136-145); Total Protein,Serum 8.6 g/dl (6.3-8.2); Triglycerides 308 mg/dl (30-150); VLDL Cholesterol 62 mg/dL (0-40)
[2022-09-14 17:30] LABS: Direct LDL Cholesterol 63.56 mg/dL (100-129); Free T4 (Free Thyroxine) 0.65 ng/dl (0.78-2.19)
[2022-09-14 17:46] LABS: Thyroid Stimulating Hormone 2.51 uIU/mL (0.465-4.68)
== END ==
PROVIDERS: PCP Family Medicine; Visit Provider Nurse Practitioner
DX: E11.9 Type 2 diabetes mellitus without complications (principal); E78.5 Hyperlipidemia, unspecified; G47.33 Obstructive sleep apnea (adult) (pediatric); I11.9 Hypertensive heart disease without heart failure; I25.10 Atherosclerotic heart disease of native coronary artery without angina pectoris; I25.2 Old myocardial infarction; R06.00 Dyspnea, unspecified; R42 Dizziness and giddiness; Z86.73 Personal history of transient ischemic attack (TIA), and cerebral infarction without residual deficits; Z95.5 Presence of coronary angioplasty implant and graft; R60.9 Edema, unspecified; I63.9 Cerebral infarction, unspecified; Z79.84 Long term (current) use of oral hypoglycemic drugs
CPT/HCPCS: 36415; 80048; 80061; 80076; 84439; 84443; 85025; 93270

== ENCOUNTER → 2022-09-19 14:13 | Outpatient (CLI) | payer MEDICARE, OTHER, SELFPAY ==
[2022-09-19 15:28] LABS: Alanine Aminotransferase 25 U/L (12-78); Alkaline Phosphatase 113 U/L (38-126); Anion Gap 12.3 mEq/L (5-15); Aspartate Amino Transferase 25 U/L (17-59); Bilirubin,Total 0.4 mg/dl (0.2-1.3); Blood Urea Nitrogen 23 mg/dl (9-20); Carbon Dioxide 29 mmol/L (22.0-30.0); Chloride 103 mmol/L (98-107); Estimated Glomerular Filt Rate 31 ml/min (>60); GFR (African American) 38 ML/MIN (>60); Globulin 4.1 g/dL (1.3-3.2); Glucose 208 mg/dl (74-100); Potassium 4.3 mmoL/L (3.5-5.1); Sodium 140 mmol/L (136-145); Total Protein,Serum 8.1 g/dl (6.3-8.2)
[2022-09-19 15:33] LABS: Calcium 12.2 mg/dl (8.4-10.2)
== END ==
PROVIDERS: PCP Family Medicine; Visit Provider Family Medicine
DX: E87.5 Hyperkalemia (principal)
CPT/HCPCS: 36415; 80053

== ENCOUNTER 2022-09-20 15:47 | Emergency (ER) | payer MEDICARE, OTHER, SELFPAY ==
[2022-09-20] VITALS (7 sets, daily range): BP systolic 146–159; BP diastolic 75–97; PULSE 71–89; RESP 16–20; TEMP 36.4–36.8; O2SAT 95–98; BMI 29.0
--- NOTE | 2022-09-20 15:47 | ECG_ITS ---
APPROVED REPORT Exam: Resting ECG HR:86 bpm ECG Measurements Heart Rate 86 AXES MI 187 P 63 QRSd 100 QRS 15 QT 343 T 47 QTc 387 Conclusion SINUS RHYTHM LOW QRS VOLTAGE IN PRECORDIAL LEADS with late R wave progression - ? body habitus issues ABNORMAL ECG UNCONFIRMED REPORT Electronically signed by : Doc Parekh MD 09/21/2022 17:33:54
--- NOTE | 2022-09-20 16:20 | HMH.EDGENADL ---
Discharge Plan Disposition Patient Disposition: Home, Self-Care Condition: Fair Chief Complaint: Weakness Prescriptions Prescriptions: No Action omeprazole 20 mg capsule,delayed release(DR/EC) 20 mg PO DAILY etodolac 400 mg tablet 400 mg PO BID glimepiride 4 mg tablet 4 mg PO BID metformin 1,000 mg tablet 1,000 mg PO BID coenzyme Q10 200 mg/gram oral powder 200 mg/gram powder 200 mg PO DAILY duloxetine 60 mg capsule,delayed release(DR/EC) 60 mg PO BID Patient Comments: TAKE TWO CAPSULES EACH DAY meclizine 25 mg tablet 25 mg PO TID PRN (Reason: dizziness) Patient Comments: TAKE 1 TABLET 3 TIMES EACH DAY pnd DIZZINESS rosuvastatin [Crestor] 20 mg tablet 20 mg PO DAILY Qty: 90 3RF carvedilol [Coreg] 25 mg tablet 25 mg PO BID Qty: 60 5RF Rx Instructions: must administer with a meal/food valsartan 80 mg tablet See Rx Instructions .ROUTE .COMPLEX Rx Instructions: TAKE 1 TABLET 1 TIME EACH DAY FOR HIGH BLOOD PRESSURE chlorthalidone 25 mg tablet See Rx Instructions .ROUTE .COMPLEX Rx Instructions: TAKE 1 TABLET 1 TIME EACH DAY FOR FLUID Xarelto 2.5 mg tablet 2.5 mg PO BID Referrals Follow up/Referrals: Maxwell Mccormack [Primary Care Provider] - See instructions Clinical Impressions Clinical Impression: CKD (chronic kidney disease), Hypercalcemia, Abnormal CT of spine, Disequilibrium Discharge ED Provider: Pieter Haney General Adult HPI General Chief complaint: Weakness Stated complaint: weakness Time Seen by Provider: 09/20/22 16:00 Mode of Arrival: Ambulatory Source of Information: Patient and Relative Limitations: No Limitations Description of Symptoms (Recalled from ER Triage Doc. by RN): c/o walking to the right and getting dizzy when he stands up fast since 09/12/22 . DAughter states that he has been confused with not knowing his sisters age of 62 instead said she was 52. Daughter feels like he has slurred speech. NIHSS 0, A&Ox4. History of Present Illness HPI narrative: Patient is a 72-year-old male with past medical history of atrial fibrillation on anticoagulation who presents to the emergency department for evaluation of dizziness. History is obtained by patient and family member at bedside. Onset was subacute, approximately 2 weeks ago. Patient has had intermittent right veering gait with multiple falls. Denies direct head trauma or loss of consciousness. Denies pain. This morning his dizziness became so bad he was unable to ambulate causing him to come here for continued evaluation. Patient denies vision changes, chest pain, abdominal pain, other acute complaints at this time. Per chart review of recent cardiology note patient has been diagnosed with dizziness, has history of TIA, history of coronary artery stenosis, ilg-[id number]-mwtmtephv diabetes, obstructive sleep apnea, hyperlipidemia, previous ACS status post stenting. Patient has CTA pending outpatient that is yet to be conducted. He is currently being monitored for his atrial fibrillation. Related Data Home Medications Medication Instructions Recorded Confirmed etodolac 400 mg tablet 400 mg PO BID Osteoarthritis 08/18/20 09/20/22 glimepiride 4 mg tablet 4 mg PO BID Diabetes 08/18/20 09/20/22 metformin 1,000 mg tablet 1,000 mg PO BID Diabetes 08/18/20 09/20/22 omeprazole 20 mg capsule,delayed 20 mg PO DAILY GERD 08/18/20 09/20/22 release coenzyme Q10 200 mg/gram oral 200 mg PO DAILY Supplement 11/25/20 09/20/22 powder (H2Q CoQ10) duloxetine 60 mg capsule,delayed 60 mg PO BID Depression 02/24/21 09/20/22 release meclizine 25 mg tablet 25 mg PO TID PRN dizziness 08/16/22 09/20/22 chlorthalidone 25 mg tablet See Rx Instructions .Route 09/20/22 09/20/22 .COMPLEX unknown rivaroxaban 2.5 mg tablet (Xarelto) 2.5 mg PO BID CAD 09/20/22 09/20/22 valsartan 80 mg tablet See Rx Instructions .Route 09/20/22 09/20/22 .COMPLEX HTN
--- NOTE | 2022-09-20 16:57 | CT_ITS ---
PROCEDURE INFORMATION: Exam: CT Head Without Contrast Exam date and time: 09/20/2022 5:29 PM Age: 72 years old Clinical indication: Other: Veering gait; Additional info: R veering gate TECHNIQUE: Imaging protocol: Computed tomography of the head without contrast. Radiation optimization: All CT scans at this facility use at least one of these dose optimization techniques: automated exposure control; mA and/or kV adjustment per patient size (includes targeted exams where dose is matched to clinical indication); or iterative reconstruction. REPORTING DATA: Count of CT and Cardiac NM exams in prior 12 months: This patient has received 0 known CTs and 0 known cardiac nuclear medicine studies in the 12 months prior to the current study. COMPARISON: No relevant prior studies available. FINDINGS: Brain: There is no evidence of acute intracranial hemorrhage, extra-axial collection or locoregional mass effect. There are scattered hypodensities in the periventricular and subcortical white matter. The appearance is nonspecific, but most likely represents chronic small vessel disease in a person of this age Cerebral ventricles: The ventricles, sulci and cisterns are normal in size and configuration for patient's age. No hydrocephalus or midline structure shift Pituitary gland and sella: Sellar/parasellar structures, craniocervical junction and orbits are unremarkable Paranasal sinuses: Visualized sinuses are unremarkable. No fluid levels. Mastoid air cells: Visualized mastoid air cells are well aerated. Bones/joints: No calvarial fracture Soft tissues: Unremarkable. IMPRESSION: No acute intracranial abnormality. No calvarial fracture.
--- NOTE | 2022-09-20 16:57 | CT_ITS ---
PROCEDURE INFORMATION: Exam: CTA Head With Contrast, Arteriography Exam date and time: 09/20/2022 5:41 PM Age: 72 years old Clinical indication: Other: Veering right gait TECHNIQUE: Imaging protocol: Computed tomographic angiography of the head with contrast. Exam focused on the arteries. 3D rendering (Not supervised by radiologist): MIP and/or 3D reconstructed images were created by the technologist. Radiation optimization: All CT scans at this facility use at least one of these dose optimization techniques: automated exposure control; mA and/or kV adjustment per patient size (includes targeted exams where dose is matched to clinical indication); or iterative reconstruction. Contrast material: ISOVUE; Contrast volume: 100 ml; Contrast route: INTRAVENOUS (IV); REPORTING DATA: Count of CT and Cardiac NM exams in prior 12 months: This patient has received 0 known CTs and 0 known cardiac nuclear medicine studies in the 12 months prior to the current study. COMPARISON: CT HEAD/BRAIN WO CON 09/20/2022 5:29 PM FINDINGS: ANTERIOR CIRCULATION: Right internal carotid artery: Moderate atherosclerotic changes in the right cavernous carotid produce mild luminal narrowing. Right middle cerebral artery: Right middle cerebral artery is patent. No significant stenosis. No aneurysm. Right anterior cerebral artery: No occlusion or significant stenosis. No aneurysm. Left internal carotid artery: Moderate atherosclerotic changes in the left cavernous carotid produce mild luminal narrowing. Left middle cerebral artery: Left middle cerebral artery is patent. No significant stenosis. No aneurysm. Left anterior cerebral artery: No occlusion or significant stenosis. No aneurysm. POSTERIOR CIRCULATION: Right vertebral artery: Right vertebral artery is diminutive and tapers distally just proximal to the vertebrobasilar junction. Left vertebral artery: Focal calcification contributes to [id number] narrowing along the intracranial segment of left vertebral artery. Basilar artery: No occlusion or significant stenosis. No aneurysm. Right posterior cerebral artery: Right posterior cerebral artery is patent. No significant stenosis. No aneurysm. Left posterior cerebral artery: Left posterior cerebral artery is patent. No significant stenosis. No aneurysm. Brain: No definite mass, mass effect, or midline shift. Cerebral ventricles: No ventriculomegaly. Bones/joints: Unremarkable. No acute fracture. Soft tissues: Unremarkable. IMPRESSION: 1. Focal calcification contributes to [id number] narrowing along the intracranial segment of left vertebral artery. 2. Right vertebral artery is diminutive and tapers distally just proximal to the vertebrobasilar junction
--- NOTE | 2022-09-20 16:57 | CT_ITS ---
PROCEDURE INFORMATION: Exam: CTA Neck With Contrast Exam date and time: 09/20/2022 5:41 PM Age: 72 years old Clinical indication: Other: Veering right gait TECHNIQUE: Imaging protocol: Computed tomographic angiography of the neck with contrast. 3D rendering (Not supervised by radiologist): MIP and/or 3D reconstructed images were created by the technologist. Radiation optimization: All CT scans at this facility use at least one of these dose optimization techniques: automated exposure control; mA and/or kV adjustment per patient size (includes targeted exams where dose is matched to clinical indication); or iterative reconstruction. Contrast material: ISOVUE; Contrast volume: 100 ml; Contrast route: INTRAVENOUS (IV); REPORTING DATA: Count of CT and Cardiac NM exams in prior 12 months: This patient has received 0 known CTs and 0 known cardiac nuclear medicine studies in the 12 months prior to the current study. COMPARISON: CT CERVICAL SPINE WO CON 09/20/2022 5:32 PM FINDINGS: Right common carotid artery: No stenosis. No dissection or occlusion. Right internal carotid artery: Moderate atherosclerotic changes contribute to 50-69% stenosis per NASCET criteria at the origin of right internal carotid artery. Right external carotid artery: No occlusion or stenosis of the origin. Left common carotid artery: No stenosis. No dissection or occlusion. Left internal carotid artery: Mild atherosclerotic changes contribute to less than 50% stenosis by NASCET criteria at the origin of left internal carotid artery. Left external carotid artery: No occlusion or stenosis of the origin. Right vertebral artery: Right vertebral artery is unremarkable without flow-limiting stenosis. Left vertebral artery: Left vertebral artery is unremarkable without flow-limiting stenosis. Left vertebral artery is dominant Right subclavian artery: There is eeqopyhj-br-tmztwx narrowing of the origin of right aberrant subclavian artery. Thyroid: Multinodular goiter noted Soft tissues: Normal. No significant soft tissue swelling. Bones/joints: No acute fracture. Multilevel degenerative changes of the included spine. IMPRESSION: 1. There is irrxbthr-ld-gsksmn narrowing at the origin of the right aberrant subclavian artery. 2. Moderate atherosclerotic changes contribute to 50-69% stenosis per NASCET criteria at the origin of right internal carotid artery. REFERENCES: NASCET CRITERIA. The degree of stenosis in the cervical segment of the internal carotid artery is based on NASCET criteria. Normal is no stenosis. Mild is less than 50% stenosis. Moderate is 50-69% stenosis. Severe is 70% to 99% stenosis. Total occlusion is no detectable patent lumen.
[2022-09-20 17:05] LABS: Basophils % 0.3 % (0.1-2.0); Eosinophils # 0.3 K/mm3 (0.0-0.4); Eosinophils % 3.3 % (0.1-12.0); Hematocrit 34.8 % (42.0-52.0); Hemoglobin 11.1 g/dL (14.1-18.0); Lymphocytes # 1.3 K/mm3 (0.7-4.5); Mean Corpuscular HGB Conc 32.1 g/dL (31.8-35.4); Mean Corpuscular Hemoglobin 26.3 pg (27.0-31.2); Mean Corpuscular Volume 82.1 fl (80-94); Mean Platelet Volume 8.6 fl (7.4-10.4); Monocytes # 0.6 K/mm3 (0.1-1.0); Neutrophils # 5.9 K/mm3 (1.8-7.8); Neutrophils % 73.4 % (37.0-80.0); Platelet Count 218 K/mm3 (142-424); Red Blood Count 4.23 M/mm3 (4.60-6.20)
--- NOTE | 2022-09-20 17:05 | CT_ITS ---
PROCEDURE INFORMATION: Exam: CT Thoracic Spine Without Contrast Exam date and time: 09/20/2022 5:35 PM Age: 72 years old Clinical indication: Pain in thoracic spine; Additional info: Hypercalcemia, back pain TECHNIQUE: Imaging protocol: Computed tomography of the thoracic spine without contrast. Radiation optimization: All CT scans at this facility use at least one of these dose optimization techniques: automated exposure control; mA and/or kV adjustment per patient size (includes targeted exams where dose is matched to clinical indication); or iterative reconstruction. REPORTING DATA: Count of CT and Cardiac NM exams in prior 12 months: This patient has received 0 known CTs and 0 known cardiac nuclear medicine studies in the 12 months prior to the current study. COMPARISON: CT CERVICAL SPINE WO CON 09/20/2022 5:32 PM FINDINGS: Bones/joints: Osseous alignment is normal. No vertebral body compression or acute fracture. Significant degenerative disc changes are present at the T7-8 and T8-9 disc levels with more mild degenerative changes at T6-C7 and T9-10. Soft tissues: Unremarkable. IMPRESSION: Multilevel degenerative changes in the lower thoracic spine. No acute abnormality.
--- NOTE | 2022-09-20 17:05 | CT_ITS ---
PROCEDURE INFORMATION: Exam: CT Lumbar Spine Without Contrast Exam date and time: 09/20/2022 5:38 PM Age: 72 years old Clinical indication: Low back pain; Additional info: Hypercalcemia, back pain TECHNIQUE: Imaging protocol: Computed tomography of the lumbar spine without contrast. Radiation optimization: All CT scans at this facility use at least one of these dose optimization techniques: automated exposure control; mA and/or kV adjustment per patient size (includes targeted exams where dose is matched to clinical indication); or iterative reconstruction. REPORTING DATA: Count of CT and Cardiac NM exams in prior 12 months: This patient has received 0 known CTs and 0 known cardiac nuclear medicine studies in the 12 months prior to the current study. COMPARISON: CT THORACIC SPINE WO CON 09/20/2022 5:35 PM FINDINGS: Bones/joints: There is slight leftward convexity of the lumbar spine. No vertebral body compression or acute fracture. Moderate multilevel degenerative disc space narrowing with disc bulge and uncovertebral spurring noted throughout the lumbar spine. Vasculature: Moderate atherosclerotic calcification throughout the distal aorta and iliac arteries. No evidence of aneurysm. Soft tissues: Unremarkable. IMPRESSION: Chronic osseous and atherosclerotic changes. No acute abnormality.
--- NOTE | 2022-09-20 17:05 | CT_ITS ---
PROCEDURE INFORMATION: Exam: CT Cervical Spine Without Contrast Exam date and time: 09/20/2022 5:32 PM Age: 72 years old Clinical indication: Neck pain; Additional info: Hypercalcemia, back pain TECHNIQUE: Imaging protocol: Computed tomography of the cervical spine without contrast. Radiation optimization: All CT scans at this facility use at least one of these dose optimization techniques: automated exposure control; mA and/or kV adjustment per patient size (includes targeted exams where dose is matched to clinical indication); or iterative reconstruction. REPORTING DATA: Count of CT and Cardiac NM exams in prior 12 months: This patient has received 0 known CTs and 0 known cardiac nuclear medicine studies in the 12 months prior to the current study. COMPARISON: CT HEAD/BRAIN WO CON 09/20/2022 5:29 PM FINDINGS: Bones/joints: Vertebral alignment is maintained. There is preservation of vertebral body heights. Facet joints are aligned. Odontoid process is intact. Atlantoaxial interval maintained. No acute fracture. Uncovertebral and facet arthropathy result in varying degrees of neural foraminal narrowing at multiple levels. Nonspecific lytic lesion at C7 vertebra. Mastoid air cells: Trace left mastoid air cells effusion Lungs: Lung apices are normal. Soft tissues: Prevertebral and paravertebral soft tissues are maintained IMPRESSION: Nonspecific lytic lesion at C7 vertebra. Further evaluation with cervical spine MRI with contrast is recommended.
[2022-09-20 17:07] LABS: Chloride 103 mmol/L (98-107); Potassium 3.6 mmoL/L (3.5-5.1); Sodium 141 mmol/L (136-145)
[2022-09-20 17:09] LABS: Blood Urea Nitrogen 21 mg/dl (9-20)
[2022-09-20 17:10] LABS: Alanine Aminotransferase 32 U/L (12-78); Albumin Level 3.8 g/dl (3.5-5.0); Albumin/Globulin Ratio 0.9 (1.1-1.8); Alkaline Phosphatase 111 U/L (38-126); Anion Gap 11.6 mEq/L (5-15); Aspartate Amino Transferase 39 U/L (17-59); Bilirubin,Total 0.5 mg/dl (0.2-1.3); Carbon Dioxide 30 mmol/L (22.0-30.0); Creatinine Clearance Estimated 44 mL/min (50-200); Estimated Glomerular Filt Rate 31 ml/min (>60); GFR (African American) 38 ML/MIN (>60); Globulin 4.3 g/dL (1.3-3.2); Glucose 90 mg/dl (74-100); Total Protein,Serum 8.1 g/dl (6.3-8.2)
[2022-09-20 17:12] LABS: Calcium 12.6 mg/dl (8.4-10.2)
--- NOTE | 2022-09-20 17:12 | PC.NURSE ---
aware of calcium of 12.6
--- NOTE | 2022-09-20 18:06 | PC.NURSE ---
checked on pt no needs at this time,call light at bs
--- NOTE | 2022-09-20 19:14 | PC.NURSE ---
Tiffanie Gomez speaking with [facility]
[2022-09-20 19:16] LABS: Microscopic, Urine URINE MICROSCOPIC (MICROSCOPIC)
[2022-09-20 19:18] LABS: Appearance,Urine CLEAR (Clear); Blood, Urine Negative (Negative); Color,Urine YELLOW (Yellow); Glucose,Urine (UA) Negative (Negative); Ketones,Urine Negative (Negative); Leukocyte Esterase,Urine TRACE (Negative); Nitrate,Urine Negative (Negative); Protein,Urine TRACE (Negative)
--- NOTE | 2022-09-20 19:19 | PC.NURSE ---
Tiffanie Gomez speaking to [facility]
--- NOTE | 2022-09-20 19:30 | PC.NURSE ---
Waiting on CB to call back for patient to be put on waitlist at this time.
--- NOTE | 2022-09-20 19:37 | PC.NURSE ---
o/p with [facility] at this time.
[2022-09-20 19:43] LABS: Bilirubin,Urine 2+ (Negative); Squamous Epithelial Cell,Urine Occasional #/hpf (0-5)
--- NOTE | 2022-09-20 19:50 | PC.NURSE ---
o/p with at this time
--- NOTE | 2022-09-20 19:51 | PC.NURSE ---
awaiting calls back from [facility] and at this time
--- NOTE | 2022-09-20 19:52 | PC.NURSE ---
informed patient on where we are at with possible transfer at this time.
--- NOTE | 2022-09-20 20:03 | PC.NURSE ---
dr hackett (hospitalist) speaking with
--- NOTE | 2022-09-20 20:16 | PC.NURSE ---
[facility] lisa r[facility]os-hospitalist
--- NOTE | 2022-09-20 20:39 | PC.NURSE ---
Facesheet faxed to at this time.
--- NOTE | 2022-09-20 21:01 | PC.NURSE ---
in room talking with patient at this time.
[2022-09-20 22:00] LABS: Calcium 11.9 mg/dl (8.4-10.2)
--- NOTE | 2022-09-20 22:59 | PC.NURSE ---
with call back with room assignment
--- NOTE | 2022-09-20 23:08 | PC.NURSE ---
[facility] called back with bed assignment at [facility]
--- NOTE | 2022-09-20 23:48 | PC.NURSE ---
Rounded on patient; updated on plan of care; call petit within reach.
[2022-09-21] VITALS: BP 157/73; PULSE 71; RESP 18; O2SAT 97
[2022-09-21 00:31] VITALS: BP 135/74; PULSE 67; RESP 14; O2SAT 96
[2022-09-21 01:00] VITALS: BP 153/74; PULSE 69; RESP 17; O2SAT 95
[2022-09-21 01:30] VITALS: BP 142/86; PULSE 70; RESP 16; O2SAT 95
[2022-09-21 02:00] VITALS: BP 153/80; PULSE 74; RESP 18; O2SAT 96
--- NOTE | 2022-09-21 02:29 | PC.NURSE ---
call placed by maggie stone to notify of patient leaving.
== END 2022-09-21 02:48 | disposition home or self-care (01) ==
PROVIDERS: Emergency Medicine; Emergency Provider Emergency Medicine; PCP Family Medicine
DX: R42 Dizziness and giddiness (principal); E83.52 Hypercalcemia; R29.6 Repeated falls; E11.22 Type 2 diabetes mellitus with diabetic chronic kidney disease; I12.9 Hypertensive chronic kidney disease with stage 1 through stage 4 chronic kidney disease, or unspecified chronic kidney disease; N18.9 Chronic kidney disease, unspecified; E78.5 Hyperlipidemia, unspecified; I25.119 Atherosclerotic heart disease of native coronary artery with unspecified angina pectoris
CPT/HCPCS: 36415; 70450; 70496; 70498; 72125; 72128; 72131; 80053; 81001; 82310; 83735; 85025; 93005; 99285; Q9967

== ENCOUNTER → 2022-10-24 10:57 | Outpatient (POV) | payer MEDICARE, OTHER, SELFPAY ==
[2022-10-24 11:34] VITALS: BP 174/93; PULSE 79; RESP 18; O2SAT 98; BMI 28.7
--- NOTE | 2022-10-24 12:13 | EXP.PAIN.OV ---
HPI Data of Consult Patient: new to practice Consult date: 10/24/22 Requesting Physician: Cecilia Sam APRN Primary Care Provider: Maxwell Mccormack Consult Narrative Reason for consult: Low back pain, neck pain, bilateral shoulder pain History of present illness: Mr. Salas is a 72 year old male who presents today as a new patient. He is a referral from Dr. Mccormack's office. Today he rates his pain a 7 out of 10. Patient states he has pain all in his low back and neck with radiating symptoms to his bilateral shoulders. Patient denies any radiating symptoms into his legs for his low back pain. Patient does describe this as a achy, sharp sensation that is worse with increased activity. Patient denies any specific trauma or injury that initially led to his symptoms. He states he does believe this is just wear and tear over the years. Patient does state that he has had his shoulder pain over the last couple of years and that his back pain has been going on for longer than that. Patient denies any previous surgery or injection history. Patient is currently in physical therapy now and states he is only had minimal improvement. Patient was taking etodolac which did provide significant improvement however he was discontinued off this medication due to only having 43 percent of kidney function. Patient was put on tramadol and he states it does help however causes some headaches. Patient states that he does also have liver function issues and has to be mindful of those medications as well. Patient does state that overall his low back pain is more bothersome than his neck and shoulder pain. He does state the pain interferes with his ability perform activities of daily living such as cooking and cleaning. He does frequently notice worsening pain with twisting, bending or lifting movements. Patient is currently on Plavix and Xarelto that is written by Dr. Fonseca. He does state that currently he has been off these medications for the last week for a bone biopsy that he is having done tomorrow at [facility]. Patient does state this is to rule out any cancer that he had elevated calcium levels. Patient has tried [id number] medications such as Tylenol along with heat and some topicals with minimal improvement. Patient is interested in any help we may be able to provide. He does also states occasionally he will have left hip pain but it is more related to wearing his wallet on that side. Patient does state that it does resolve when he takes his wallet out or changes sides. Patient does state that he has had recent MRI imaging done at [facility]. He is currently managed with tramadol 50 mg 3 times a day from his PCP. His Rene is [phone]. Its been reviewed and appropriate. CC: Cecilia Sam APRN [facility] Disclaimer: The information contained in this section may have been updated after the patient was seen, as this information can be updated by other users. Medical History (Updated 10/24/22 @ 12:19 by Cecilia Sam APRN) Abnormal nuclear stress test Atypical angina Cardiac dysrhythmia Coronary artery disease Coronary artery stenosis Diabetes Dizziness History of CT (myocardial infarction) History of TIA (transient ischemic attack) HLD (hyperlipidemia) HTN (hypertension) JUSTICE (obstructive sleep apnea) Prostate cancer Surgical History History of cardiac catheterization History of coronary artery stent placement Hx of prostatectomy Family History (Updated 10/24/22 @ 11:06 by Vianca Domínguez RN) Brother Colon cancer Other Coronary artery disease Family history of hyperlipidemia Pancreatitis Social History (Updated 10/24/22 @ 11:35 by Vianca Domínguez RN) Smoking Status: Never smoker second hand exposure: No alcohol intake: never substance use type: denies use current occupational status: retired Travel in the last 8 weeks: None household members: spouse
== END | disposition home or self-care (01) ==
PROVIDERS: PCP Family Medicine; Visit Provider Nurse Practitioner Family
DX: M51.36 Other intervertebral disc degeneration, lumbar region (principal); M47.816 Spondylosis without myelopathy or radiculopathy, lumbar region; M54.2 Cervicalgia; M54.12 Radiculopathy, cervical region; M25.511 Pain in right shoulder; M25.512 Pain in left shoulder; G89.29 Other chronic pain
CPT/HCPCS: 99202; G0463

== ENCOUNTER 2022-10-24 16:00 | Outpatient (RCR) | payer MEDICARE, OTHER, SELFPAY | END 2022-12-19 17:15 | disposition home or self-care (01) | LOC: PT 16:00 | PROVIDERS: PCP Family Medicine; Visit Provider Family Medicine | DX: R26.89 Other abnormalities of gait and mobility (principal); R53.1 Weakness | CPT/HCPCS: 97110; 97112; 97163; 97530 ==

== ENCOUNTER 2022-10-29 13:38 | Emergency (ER) | payer MEDICARE, OTHER, SELFPAY ==
[2022-10-29] VITALS (10 sets, daily range): BP systolic 135–191; BP diastolic 84–115; PULSE 67–104; RESP 18–20; TEMP 36.6–36.7; O2SAT 92–98; BMI 28.7
--- NOTE | 2022-10-29 13:45 | ECG_ITS ---
APPROVED REPORT Exam: Resting ECG HR:97 bpm ECG Measurements Heart Rate 97 AXES [place] 178 P 52 QRSd 88 QRS -19 QT 349 T 66 QTc 403 Conclusion SINUS RHYTHM Late R wave progression ABNORMAL ECG UNCONFIRMED REPORT Electronically signed by : Doc Parekh MD 10/30/2022 07:30:31
--- NOTE | 2022-10-29 14:44 | PC.NURSE ---
Rounded on pt. No new needs voiced at this time. Pt continues to rest in bed.
[2022-10-29 14:58] LABS: Influenza A, PCR Not Detected (NotDetected); Influenza B, PCR Not Detected (NotDetected); Microscopic, Urine URINE MICROSCOPIC (MICROSCOPIC)
[2022-10-29 15:13] LABS: Appearance,Urine CLEAR (Clear); Bilirubin,Urine Negative (Negative); Blood, Urine 1+ (Negative); Color,Urine YELLOW (Yellow); Glucose,Urine (UA) Negative (Negative); Ketones,Urine TRACE (Negative); Leukocyte Esterase,Urine Negative (Negative); Nitrate,Urine Negative (Negative); Protein,Urine 3+ (Negative); Specific Gravity, Urine >= 1.030 (1.005-1.030)
[2022-10-29 15:30] LABS: Coronavirus 19, PCR Detected (NotDetected)
[2022-10-29 15:36] LABS: Bacteria,Urine Trace /lpf; RBC,Urine Occasional #/hpf (0-3)
--- NOTE | 2022-10-29 15:41 | XR_ITS ---
PROCEDURE INFORMATION: Exam: XR Chest Exam date and time: 10/29/2022 3:52 PM Age: 72 years old Clinical indication: Shortness of breath; Additional info: SOA, covid + TECHNIQUE: Imaging protocol: Radiologic exam of the chest. Views: 2 views. COMPARISON: CT THORACIC SPINE WO CON 09/20/2022 5:35 PM FINDINGS: Lungs: Nodular opacity in left lower lobe can be either a nodule or developing pneumonia. Focal granuloma right lower lobe noted Pleural spaces: Unremarkable. No pleural effusion. No pneumothorax. Heart/Mediastinum: Unremarkable. No cardiomegaly. Bones/joints: Unremarkable. IMPRESSION: Nodular opacity in left lower lobe can be either a nodule or developing pneumonia in this patient with COVID-19 infection.
--- NOTE | 2022-10-29 15:42 | CT_ITS ---
PROCEDURE INFORMATION: Exam: CT Head Without Contrast Exam date and time: 10/29/2022 4:08 PM Age: 72 years old Clinical indication: Altered mental status/memory loss; Additional info: Subacute AMS TECHNIQUE: Imaging protocol: Computed tomography of the head without contrast. Radiation optimization: All CT scans at this facility use at least one of these dose optimization techniques: automated exposure control; mA and/or kV adjustment per patient size (includes targeted exams where dose is matched to clinical indication); or iterative reconstruction. REPORTING DATA: Count of CT and Cardiac NM exams in prior 12 months: This patient has received 6 known CTs and 0 known cardiac nuclear medicine studies in the 12 months prior to the current study. COMPARISON: CT HEAD/BRAIN WO CON 09/20/2022 5:29 PM FINDINGS: Brain: chronic lacunar infarct in the left cerebellum.There are multiple small hypodensities in the basal ganglia, consistent with remote lacunar infarctions/prominent perivascular spaces. There is no evidence of acute intracranial hemorrhage, extra-axial collection or locoregional mass effect. There are scattered hypodensities in the periventricular and subcortical white matter. The appearance is nonspecific, but most likely represents chronic small vessel disease in a person of this age Cerebral ventricles: The ventricles, sulci and cisterns are normal in size and configuration for patient's age. No hydrocephalus or midline structure shift Pituitary gland and sella: Sellar/parasellar structures, craniocervical junction and orbits are unremarkable Paranasal sinuses: Mucous retention cyst versus polyp in the left maxillary sinus. Mastoid air cells: Visualized mastoid air cells are well aerated. Bones/joints: No calvarial fracture Soft tissues: Unremarkable. IMPRESSION: No acute intracranial abnormality. No calvarial fracture.
--- NOTE | 2022-10-29 15:53 | PC.NURSE ---
Pt gone to RAD via wheelchair
--- NOTE | 2022-10-29 16:01 | PC.NURSE ---
Family updated that pt had tested positive for covid. Family provided with masks.
--- NOTE | 2022-10-29 16:11 | PC.NURSE ---
Pt returned from RAD
[2022-10-29 16:43] LABS: Basophils % 0.5 % (0.1-2.0); Eosinophils % 0.4 % (0.1-12.0); Hematocrit 36.9 % (42.0-52.0); Hemoglobin 11.2 g/dL (14.1-18.0); Lymphocytes # 0.8 K/mm3 (0.7-4.5); Lymphocytes % 13.2 % (10-50); Mean Corpuscular HGB Conc 30.4 g/dL (31.8-35.4); Mean Corpuscular Hemoglobin 24.4 pg (27.0-31.2); Mean Corpuscular Volume 80.3 fl (80-94); Mean Platelet Volume 8.8 fl (7.4-10.4); Monocytes # 0.7 K/mm3 (0.1-1.0); Neutrophils # 4.4 K/mm3 (1.8-7.8); Neutrophils % 74.9 % (37.0-80.0); Platelet Count 226 K/mm3 (142-424); Red Blood Count 4.59 M/mm3 (4.60-6.20); Red Cell Distribution Width 16.5 % (11.5-17.5); White Blood Count 5.9 K/mm3 (4.8-10.8)
[2022-10-29 16:50] LABS: Alanine Aminotransferase 25 U/L (12-78); Albumin Level 4.3 g/dl (3.5-5.0); Albumin/Globulin Ratio 0.9 (1.1-1.8); Alkaline Phosphatase 80 U/L (38-126); Anion Gap 12.6 mEq/L (5-15); Aspartate Amino Transferase 36 U/L (17-59); Bilirubin,Total 0.4 mg/dl (0.2-1.3); Blood Urea Nitrogen 17 mg/dl (9-20); Calcium 9.4 mg/dl (8.4-10.2); Carbon Dioxide 28 mmol/L (22.0-30.0); Chloride 104 mmol/L (98-107); Creatinine Clearance Estimated 65 mL/min (50-200); Estimated Glomerular Filt Rate 50 ml/min (>60); GFR (African American) 61 ML/MIN (>60); Glucose 60 mg/dl (74-100); Magnesium 1.8 mg/dl (1.6-2.3); Phosphorous 2.7 mg/dl (2.5-4.5); Potassium 3.6 mmoL/L (3.5-5.1); Sodium 141 mmol/L (136-145); Total Protein,Serum 9.3 g/dl (6.3-8.2)
--- NOTE | 2022-10-29 16:58 | PC.NURSE ---
pt's blood glucose is 60, [facility] EMT gave pt 2 OJ and PB & crackers
[2022-10-29 17:02] LABS: Troponin I 0.08 ng/ml (0.00-0.034)
[2022-10-29 17:10] LABS: Free T4 (Free Thyroxine) 1.19 ng/dl (0.78-2.19)
[2022-10-29 17:20] LABS: Thyroid Stimulating Hormone 1.58 uIU/mL (0.465-4.68)
--- NOTE | 2022-10-29 18:05 | PC.NURSE ---
ordered pt sandwich and chips
--- NOTE | 2022-10-29 18:12 | PC.NURSE ---
Dr. Morales at [facility] to update pt/family on POC
[2022-10-29 18:18] LABS: POC Glucose,Bedside 113 (70-110)
--- NOTE | 2022-10-29 18:23 | PC.NURSE ---
spoke with Agustina in the lab about the second trop. per provider he wants the second trop at 1830.
[2022-10-29 19:04] LABS: Troponin I 0.08 ng/ml (0.00-0.034)
--- NOTE | 2022-10-30 19:01 | HMH.EDGENADL ---
Discharge Plan Disposition Patient Disposition: Home, Self-Care Condition: Good Prescriptions Prescriptions: No Action omeprazole 20 mg capsule,delayed release(DR/EC) 20 mg PO DAILY glimepiride 4 mg tablet 4 mg PO BID metformin 1,000 mg tablet 1,000 mg PO BID coenzyme Q10 200 mg/gram oral powder 200 mg/gram powder 200 mg PO DAILY duloxetine 60 mg capsule,delayed release(DR/EC) 60 mg PO BID Patient Comments: TAKE TWO CAPSULES EACH DAY meclizine 25 mg tablet 25 mg PO TID PRN (Reason: dizziness) Patient Comments: TAKE 1 TABLET 3 TIMES EACH DAY pnd DIZZINESS clopidogrel [Plavix] 75 mg tablet 75 mg PO DAILY rosuvastatin [Crestor] 20 mg tablet 20 mg PO DAILY Qty: 90 3RF carvedilol [Coreg] 25 mg tablet 25 mg PO BID Qty: 60 5RF Rx Instructions: must administer with a meal/food valsartan 80 mg tablet See Rx Instructions .ROUTE .COMPLEX Rx Instructions: TAKE 1 TABLET 1 TIME EACH DAY FOR HIGH BLOOD PRESSURE chlorthalidone 25 mg tablet See Rx Instructions .ROUTE .COMPLEX Rx Instructions: TAKE 1 TABLET 1 TIME EACH DAY FOR FLUID tramadol 50 mg tablet 50 mg PO TIDP PRN (Reason: Pain) Patient Comments: TAKE 1 TABLET 3 TIMES EACH DAY NEEDED FOR BACK PAIN Xarelto 15 mg tablet 15 mg PO DAILY Rx Instructions: must administer with evening meal methocarbamol 500 mg tablet 500 mg PO BID Qty: 28 0RF Referrals Follow up/Referrals: Maxwell Mccormack [Primary Care Provider] - See instructions Activity Restrictions/Add. Instructions Additional Instructions/Restrictions: As discussed, it appears that any mental status changes have resolved and you are back to your baseline, you do have COVID and chronic medical issues but you have no shortness of breath or new oxygen requirement at this time. That being said, as we discussed, please return to the emergency department with any new or worsening symptoms and follow-up closely with your primary care doctors. Clinical Impressions Clinical Impression: COVID Instructions Patient Instructions: How to Prevent Falls Discharge ED Provider: Jose Morales Adult HPI General Chief complaint: Fall Stated complaint: AO confusion, fall 0900,cough Time Seen by Provider: 10/29/22 15:18 Mode of Arrival: Ambulatory Source of Information: Patient Limitations: No Limitations Description of Symptoms (Recalled from ER Triage Doc. by RN): per daughter pt had confusion this am and then pt experienced a fall. daughter states pt was here recently and did have an UTI. pt alert and oriented at this time. pt states he remembers falling this morning and that he tripped over clothes. History of Present Illness HPI narrative: Patient presents for evaluation of confusion, intermittent course, gradually improving, starting today, with no associated head injury or fevers or chills or nausea or vomiting, patient had recent admission with work-up and bone marrow biopsy concerning for diagnosis of multiple myeloma, recent discharge, has subsequently experienced symptoms that he describes as cold, with no associated shortness of air or fevers or chills. Daughter states patient had a UTI, although per chart review external record it appears patient had acute kidney injury which is gradually improved in the setting of concern for multiple myeloma. No blood thinner usage, no pain at this time, patient is alert and oriented and denies any confusion or focal symptoms. No visual complaints, no numbness or tingling. Related Data Home Medications Medication Instructions Recorded Confirmed glimepiride 4 mg tablet 4 mg PO BID Diabetes 08/18/20 10/24/22 metformin 1,000 mg tablet 1,000 mg PO BID Diabetes 08/18/20 10/24/22 omeprazole 20 mg capsule,delayed 20 mg PO DAILY GERD 08/18/20 10/24/22 release coenzyme Q10 200 mg/gram oral 200 mg PO DAILY Supplement 11/25/20 10/24/22 powder (H2Q CoQ1
== END 2022-10-29 19:27 | disposition home or self-care (01) ==
PROVIDERS: Emergency Medicine; Emergency Provider Emergency Medicine; PCP Family Medicine
DX: U07.1 COVID-19 (principal); I10 Essential (primary) hypertension; E78.5 Hyperlipidemia, unspecified; I25.10 Atherosclerotic heart disease of native coronary artery without angina pectoris; E11.9 Type 2 diabetes mellitus without complications; G47.33 Obstructive sleep apnea (adult) (pediatric); Z79.84 Long term (current) use of oral hypoglycemic drugs
CPT/HCPCS: 36415; 70450; 71046; 80053; 81001; 82962; 83735; 84100; 84439; 84443; 84484; 85025; 87636; 93005; 99285

== ENCOUNTER → 2022-11-23 12:26 | Outpatient (CLI) | payer MEDICARE, OTHER, SELFPAY ==
--- NOTE | 2022-11-23 12:32 | CT_ITS ---
FINAL REPORT CLINICAL HISTORY: headache,afib COMPARISON: 10/29/2022 FINDINGS: Axial images of the head were obtained without contrast. Coronal reformatted images were also obtained. This study was performed with techniques to keep radiation doses as low as reasonably achievable (ALARA). Individualized dose reduction techniques using automated exposure control or adjustment of mA and/or kV according to the patient's size were employed. There is generalized age-appropriate atrophy. Periventricular low-attenuation areas are seen consistent with mild chronic ischemic changes. There is no evidence of intracranial hemorrhage or mass. There is no evidence of acute infarct. There is no evidence of shift of the midline structures. No skull abnormality is seen on the bone window images. IMPRESSION: Atrophy and mild periventricular chronic ischemic changes. No acute intracranial abnormality identified. Reviewed, Interpreted and Dictated by Nimesh Giang III, MD Transcribed by Jolynn Benson Authenticated and [facility]
[2022-11-23 13:07] LABS: MANUAL DIFFERENTIAL MANUAL DIFFERENTIAL (MANUAL DIFF)
[2022-11-23 13:29] LABS: Basophils % 0.3 % (0.1-2.0); Eosinophils # 0.2 K/mm3 (0.0-0.4); Eosinophils % 2.8 % (0.1-12.0); Hematocrit 37.6 % (42.0-52.0); Hemoglobin 12.2 g/dL (14.1-18.0); Lymphocytes % 13.4 % (10-50); Mean Corpuscular HGB Conc 32.5 g/dL (31.8-35.4); Mean Corpuscular Hemoglobin 26.2 pg (27.0-31.2); Mean Corpuscular Volume 80.4 fl (80-94); Mean Platelet Volume 9.3 fl (7.4-10.4); Monocytes # 0.4 K/mm3 (0.1-1.0); Monocytes % 5.7 % (1.7-9.3); Neutrophils # 5.5 K/mm3 (1.8-7.8); Neutrophils % 77.8 % (37.0-80.0); Platelet Count 223 K/mm3 (142-424); Red Blood Count 4.68 M/mm3 (4.60-6.20); Red Cell Distribution Width 16.8 % (11.5-17.5); White Blood Count 7.1 K/mm3 (4.8-10.8)
[2022-11-23 14:18] LABS: Eosinophils % 2 % (0-3); Lymphocytes % 10 % (10-50); Monocytes % 8 % (2-9); Neutrophils % 80 % (42-76); Total Cells Counted 100
[2022-11-23 14:20] LABS: Anisocytosis 1+; Hypochromasia 2+; Microcytosis 1+; Platelet Estimate Normal
[2022-11-23 14:48] LABS: Vitamin B12 303 pg/mL (239-931)
[2022-11-30 12:35] LABS: Methylmalonic Acid 332 nmol/L (0-378)
== END ==
PROVIDERS: PCP Family Medicine; Visit Provider Specialist
DX: G45.8 Other transient cerebral ischemic attacks and related syndromes; I48.0 Paroxysmal atrial fibrillation; I74.9 Embolism and thrombosis of unspecified artery; R51.9 Headache, unspecified; D64.9 Anemia, unspecified; E53.8 Deficiency of other specified B group vitamins
CPT/HCPCS: 36415; 70450; 82607; 82746; 83921; 85007; 85014; 85018; 85048; 85049; 86340

== ENCOUNTER 2022-11-29 11:52 | Observation (INO) | payer MEDICARE, OTHER, SELFPAY ==
[2022-11-29] VITALS (35 sets, daily range): BP systolic 105–206; BP diastolic 76–126; PULSE 68–108; RESP 10–28; TEMP 36.6–38.5; O2SAT 91–98; BMI 26.9; BMI 26.2
--- NOTE | 2022-11-29 12:20 | CT_ITS ---
FINAL REPORT TECHNIQUE: Thin section axial CT with IV contrast supplemented with multiplanar reconstruction under CT angiogram protocol. This study was performed with techniques to keep radiation doses as low as reasonably achievable (ALARA). Individualized dose reduction techniques using automated exposure control or adjustment of mA and/or kV according to the patient''s size were employed. NASCET criteria was utilized during interpretation. CLINICAL HISTORY: TIA COMPARISON: September 20, 2022 FINDINGS: Aortic arch: Arch shows no significant narrowing. Great vessel origins are widely patent. Right carotid: Calcified plaque at the bifurcation without significant stenosis. Calcification in the distal ICA with mild stenosis. Left carotid: Calcified plaque at the bifurcation without significant stenosis. Calcification in the distal ICA with mild stenosis. Vertebral: Left vertebral artery is dominant. The left vertebral artery originates from the aortic arch. There is calcification of the distal left vertebral artery with mild stenosis. Bilateral heterogeneous thyroid nodules are stable. IMPRESSION: No major vessel occlusion or significant stenosis. Reviewed, Interpreted and Dictated by Nimesh Giang III, MD Transcribed by Alfred Crabtree Authenticated and [facility]
--- NOTE | 2022-11-29 12:20 | CT_ITS ---
FINAL REPORT CLINICAL HISTORY: TIA COMPARISON: November 23, 2022 FINDINGS: Axial images of the head were obtained without contrast. Coronal reformatted images were also obtained. This study was performed with techniques to keep radiation doses as low as reasonably achievable (ALARA). Individualized dose reduction techniques using automated exposure control or adjustment of mA and/or kV according to the patient''s size were employed. There is generalized age-appropriate atrophy. Periventricular low-attenuation areas are seen consistent with mild chronic ischemic changes. There is no evidence of intracranial hemorrhage or mass. There is no evidence of acute infarct. There is no evidence of shift of the midline structures. No skull abnormality is seen on the bone window images. IMPRESSION: Atrophy and mild periventricular chronic ischemic changes. No acute intracranial abnormality identified. Reviewed, Interpreted and Dictated by Nimesh Giang III, MD Transcribed by Alfred Crabtree Authenticated and [facility]
--- NOTE | 2022-11-29 12:20 | CT_ITS ---
FINAL REPORT TECHNIQUE: Thin section axial CT with IV contrast supplemented with multiplanar reconstruction under CT angiogram protocol. 3-D reconstructions were performed. This study was performed with techniques to keep radiation doses as low as reasonably achievable (ALARA). Individualized dose reduction techniques using automated exposure control or adjustment of mA and/or kV according to the patient''s size were employed. CLINICAL HISTORY: TIA FINDINGS: The basilar and distal internal carotid arteries have an unremarkable appearance. No aneurysm is seen. Major intracranial vessels are patent without significant stenosis. IMPRESSION: No major vessel occlusion. Reviewed, Interpreted and Dictated by Nimesh Giang III, MD Transcribed by Alfred Crabtree Authenticated and [facility]
--- NOTE | 2022-11-29 12:23 | XR_ITS ---
FINAL REPORT CLINICAL HISTORY: fall, SYNCOPE FINDINGS: The heart size is normal. The mediastinum is within normal limits. There is mild right basilar opacity. There is no pleural effusion. There is no pneumothorax. The bony thorax is intact. IMPRESSION: Mild right basilar opacity favoring atelectasis or scarring. Reviewed, Interpreted and Dictated by Nimesh Giang III, MD Transcribed by Alfred Crabtree Authenticated and [facility]
--- NOTE | 2022-11-29 12:27 | HMH.EDGENADL ---
Discharge Plan Disposition Patient Disposition: Xfer Short-Term Hosp Chief Complaint: Dizziness Prescriptions Prescriptions: No Action omeprazole 20 mg capsule,delayed release(DR/EC) 20 mg PO DAILY glimepiride 4 mg tablet 4 mg PO BID metformin 1,000 mg tablet 1,000 mg PO BID coenzyme Q10 200 mg/gram oral powder 200 mg/gram powder 200 mg PO DAILY duloxetine 60 mg capsule,delayed release(DR/EC) 60 mg PO BID Patient Comments: TAKE TWO CAPSULES EACH DAY meclizine 25 mg tablet 25 mg PO TID PRN (Reason: dizziness) Patient Comments: TAKE 1 TABLET 3 TIMES EACH DAY pnd DIZZINESS aspirin 81 mg tablet,delayed release (DR/EC) 81 mg PO DAILY rosuvastatin [Crestor] 20 mg tablet 20 mg PO DAILY Qty: 90 3RF carvedilol [Coreg] 25 mg tablet 25 mg PO BID Qty: 60 5RF Rx Instructions: must administer with a meal/food valsartan 80 mg tablet See Rx Instructions .ROUTE .COMPLEX Rx Instructions: TAKE 1 TABLET 1 TIME EACH DAY FOR HIGH BLOOD PRESSURE chlorthalidone 25 mg tablet See Rx Instructions .ROUTE .COMPLEX Rx Instructions: TAKE 1 TABLET 1 TIME EACH DAY FOR FLUID Xarelto 15 mg tablet 15 mg PO DAILY Rx Instructions: must administer with evening meal methocarbamol 500 mg tablet 500 mg PO BID Qty: 28 0RF Referrals Follow up/Referrals: Chapin Bocanegra MD [Emergency Provider] - See instructions Clinical Impressions Clinical Impression: Brain TIA, Carotid artery stenosis Discharge ED Provider: Chapin Bocanegra General Adult HPI <Chapin Bocanegra MD - Last Filed: 11/29/22 18:05> General Chief complaint: Dizziness Stated complaint: AO ON 11/29 Time Seen by Provider: 11/29/22 12:02 Mode of Arrival: Wheelchair Source of Information: Patient Limitations: No Limitations Description of Symptoms (Recalled from ER Triage Doc. by RN): Patient reports that when he got up this morning that he got dizzy and fell. Denies LOC. Patient states he has been having ongoing dizziness for the past 3-4 months. Per visitor he doees tthis when he has a TIA. History of Present Illness HPI narrative: 72-year-old male, history of TIAs, paroxysmal A-fib on Xarelto, history of recently diagnosed MGUS, coronary artery disease, sleep apnea presents with possible TIA. Symptoms are similar to prior episodes, one episode happening last week, a couple episodes happening in the prior 2 months. Patient was seen and evaluated at [facility] for similar symptoms a couple months ago. Today, the patient reports that he was walking to the bathroom at approximately 7 or 7:30 AM, felt generally weak worse on the right side, noticed that he was slurring his words. He went to the ground and was unable to get up due to weakness. His daughter arrived at approximately 10 AM and found him generally weak, but not slurring his words at that time. On arrival patient has no acute complaints. He is being worked up by neurology outpatient for these episodes, has also been evaluated by cardiology. Related Data Home Medications Medication Instructions Recorded Confirmed glimepiride 4 mg tablet 4 mg PO BID Diabetes 08/18/20 11/23/22 metformin 1,000 mg tablet 1,000 mg PO BID Diabetes 08/18/20 11/23/22 omeprazole 20 mg capsule,delayed 20 mg PO DAILY GERD 08/18/20 11/23/22 release coenzyme Q10 200 mg/gram oral 200 mg PO DAILY Supplement 11/25/20 11/23/22 powder (H2Q CoQ10) duloxetine 60 mg capsule,delayed 60 mg PO BID Depression 02/24/21 11/23/22 release meclizine 25 mg tablet 25 mg PO TID PRN dizziness 08/16/22 11/23/22 chlorthalidone 25 mg tablet See Rx Instructions .Route 09/20/22 11/23/22 .COMPLEX unknown valsartan 80 mg tablet See Rx Instructions .Route 09/20/22 11/23/22 .COMPLEX HTN rivaroxaban 15 mg tablet (Xarelto) 15 mg PO DAILY Blood Thinner 10/24/22 11/23/22 aspirin 81 mg tablet,delayed 81 mg PO DAILY 11/23/22 11/23/22 release Previous Rx's
[2022-11-29 12:40] LABS: Basophils % 0.2 % (0.1-2.0); Eosinophils % 0.2 % (0.1-12.0); Hematocrit 36.7 % (42.0-52.0); Hemoglobin 11.9 g/dL (14.1-18.0); Lymphocytes # 1.1 K/mm3 (0.7-4.5); Lymphocytes % 8.6 % (10-50); Mean Corpuscular HGB Conc 32.5 g/dL (31.8-35.4); Mean Corpuscular Hemoglobin 26.5 pg (27.0-31.2); Mean Corpuscular Volume 81.6 fl (80-94); Mean Platelet Volume 8.7 fl (7.4-10.4); Monocytes # 0.7 K/mm3 (0.1-1.0); Monocytes % 5.8 % (1.7-9.3); Neutrophils # 10.8 K/mm3 (1.8-7.8); Neutrophils % 85.3 % (37.0-80.0); Platelet Count 241 K/mm3 (142-424); Red Blood Count 4.49 M/mm3 (4.60-6.20); Red Cell Distribution Width 17.1 % (11.5-17.5); White Blood Count 12.7 K/mm3 (4.8-10.8)
[2022-11-29 12:44] LABS: MANUAL DIFFERENTIAL MANUAL DIFFERENTIAL (MANUAL DIFF)
[2022-11-29 12:47] LABS: Chloride 103 mmol/L (98-107); Sodium 139 mmol/L (136-145)
[2022-11-29 12:50] LABS: Alanine Aminotransferase 28 U/L (12-78); Albumin Level 4.2 g/dl (3.5-5.0); Alkaline Phosphatase 83 U/L (38-126); Aspartate Amino Transferase 36 U/L (17-59); Bilirubin,Total 0.4 mg/dl (0.2-1.3); Blood Urea Nitrogen 14 mg/dl (9-20); Carbon Dioxide 29 mmol/L (22.0-30.0); Creatinine Clearance Estimated 71 mL/min (50-200); Estimated Glomerular Filt Rate 60 ml/min (>60); GFR (African American) 72 ML/MIN (>60); Globulin 4.1 g/dL (1.3-3.2); Total Protein,Serum 8.3 g/dl (6.3-8.2)
[2022-11-29 12:51] LABS: Calcium 10.5 mg/dl (8.4-10.2); Glucose 131 mg/dl (74-100)
[2022-11-29 12:55] LABS: Anisocytosis 2+; Lymphocytes % 3 % (10-50); Monocytes % 2 % (2-9); Neutrophils % 87 % (42-76); Total Cells Counted 100
[2022-11-29 12:56] LABS: Hypochromasia 1+; Microcytosis 1+; Platelet Estimate Normal
[2022-11-29 12:57] LABS: Stomatocytes 1+
--- NOTE | 2022-11-29 13:16 | ECG_ITS ---
APPROVED REPORT Exam: Resting ECG HR:91 bpm ECG Measurements Heart Rate 91 AXES [place] 183 P 51 QRSd 99 QRS -30 QT 375 T 71 QTc 423 Conclusion SINUS RHYTHM WITH OCCASIONAL SUPRAVENTRICULAR PREMATURE COMPLEXES Poor r wave progression ABNORMAL ECG UNCONFIRMED REPORT Electronically signed by : Doc Parekh MD 12/01/2022 21:31:21
--- NOTE | 2022-11-29 16:21 | PC.NURSE ---
care management notified they approved the MRI
--- NOTE | 2022-11-29 16:25 | PC.NURSE ---
Dr. Bunn at [facility]
--- NOTE | 2022-11-29 16:46 | PC.NURSE ---
Contacting [facility] for possible transfer
--- NOTE | 2022-11-29 16:57 | PC.NURSE ---
pt gone to MRI
--- NOTE | 2022-11-29 17:16 | CT_ITS ---
PROCEDURE INFORMATION: Exam: CT Head Without Contrast Exam date and time: 11/29/2022 5:38 PM Age: 72 years old Clinical indication: Stroke-like symptoms; Lt upper extremity weakness TECHNIQUE: Imaging protocol: Computed tomography of the head without contrast. Radiation optimization: All CT scans at this facility use at least one of these dose optimization techniques: automated exposure control; mA and/or kV adjustment per patient size (includes targeted exams where dose is matched to clinical indication); or iterative reconstruction. Other technique: STROKE PROTOCOL was implemented. REPORTING DATA: Count of CT and Cardiac NM exams in prior 12 months: This patient has received 8 known CTs and 0 known cardiac nuclear medicine studies in the 12 months prior to the current study. COMPARISON: CT HEAD/BRAIN WO CON 11/29/2022 1:02 PM FINDINGS: Brain: There is moderate diffuse cerebral volume loss present. Multiple subcortical and deep hypoattenuating white matter foci are present, likely related to small vessel senescent changes and can also be seen with prior infectious / inflammatory insult, or prior traumatic events. No hyperattenuating foci are identified to suggest acute intracranial hemorrhage. Cerebral ventricles: No ventriculomegaly. Paranasal sinuses: Visualized sinuses are unremarkable. No fluid levels. Mastoid air cells: Visualized mastoid air cells are well aerated. Bones/joints: Unremarkable. No acute fracture. Soft tissues: Unremarkable. IMPRESSION: 1. Multiple subcortical and deep hypoattenuating white matter foci are present, likely related to small vessel senescent changes and can also be seen with prior infectious / inflammatory insult, or prior traumatic events. 2. No hyperattenuating foci are identified to suggest acute intracranial hemorrhage. ASSESSMENT: ASPECTS ([place] Stroke Program Early CT Score) is 10.
--- NOTE | 2022-11-29 17:18 | CT_ITS ---
PROCEDURE INFORMATION: Exam: CTA Neck With Contrast Exam date and time: 11/29/2022 5:38 PM Age: 72 years old Clinical indication: Stroke-like symptoms; Lt upper extremity weakness; Additional info: Stroke, left neglect/ataxia TECHNIQUE: Imaging protocol: Computed tomographic angiography of the neck with contrast. Exam focused on the cervical segments of the vasculature. 3D rendering (Not supervised by radiologist): MIP and/or 3D reconstructed images were created by the technologist. Radiation optimization: All CT scans at this facility use at least one of these dose optimization techniques: automated exposure control; mA and/or kV adjustment per patient size (includes targeted exams where dose is matched to clinical indication); or iterative reconstruction. Contrast material: ISO 370; Contrast volume: 70 ml; Contrast route: INTRAVENOUS (IV); REPORTING DATA: Count of CT and Cardiac NM exams in prior 12 months: This patient has received 8 known CTs and 0 known cardiac nuclear medicine studies in the 12 months prior to the current study. COMPARISON: CT ANGIO NECK 11/29/2022 1:04 PM FINDINGS: Right common carotid artery: Moderate calcified and noncalcified atherosclerotic disease of the right carotid bulb resulting in moderate stenosis. Right internal carotid artery: No stenosis of the extracranial segment. No dissection or occlusion. Right external carotid artery: No occlusion or stenosis of the origin. Left common carotid artery: No stenosis. No dissection or occlusion. Left internal carotid artery: Moderate calcified and noncalcified atherosclerotic disease of the proximal left ICA resulting in moderate stenosis. Left external carotid artery: No occlusion or stenosis of the origin. Right vertebral artery: No stenosis. No dissection or occlusion. Left vertebral artery: No stenosis. No dissection or occlusion. Soft tissues: Normal. No significant soft tissue swelling. Bones/joints: Mild loss of intervertebral disc space with degenerative changes at C3 through T1. Lungs: Dependent bilateral lung base opacities favor atelectasis. Other findings: Aberrant right subclavian incidentally noted. IMPRESSION: 1. Moderate calcified and noncalcified atherosclerotic disease of the right carotid bulb resulting in moderate stenosis. 2. Moderate calcified and noncalcified atherosclerotic disease of the proximal left ICA resulting in moderate stenosis. REFERENCES: NASCET CRITERIA. The degree of stenosis in the cervical segment of the internal carotid artery is based on NASCET criteria. Normal is no stenosis. Mild is less than 50% stenosis. Moderate is 50-69% stenosis. Severe is 70% to 99% stenosis. Total occlusion is no detectable patent lumen.
--- NOTE | 2022-11-29 17:18 | CT_ITS ---
PROCEDURE INFORMATION: Exam: CTA Head With Contrast, Arteriography Exam date and time: 11/29/2022 5:38 PM Age: 72 years old Clinical indication: Stroke-like symptoms; Lt upper extremity weakness; Additional info: Stroke, left neglect ataxia TECHNIQUE: Imaging protocol: Computed tomographic angiography of the head with contrast. Exam focused on the arteries. 3D rendering (Not supervised by radiologist): MIP and/or 3D reconstructed images were created by the technologist. Radiation optimization: All CT scans at this facility use at least one of these dose optimization techniques: automated exposure control; mA and/or kV adjustment per patient size (includes targeted exams where dose is matched to clinical indication); or iterative reconstruction. Contrast material: ISO 370; Contrast volume: 70 ml; Contrast route: INTRAVENOUS (IV); REPORTING DATA: Count of CT and Cardiac NM exams in prior 12 months: This patient has received 8 known CTs and 0 known cardiac nuclear medicine studies in the 12 months prior to the current study. COMPARISON: CT ANGIO HEAD 11/29/2022 1:04 PM FINDINGS: ANTERIOR CIRCULATION: Right internal carotid artery: Moderate to severe calcified and noncalcified atherosclerotic disease of the right intracranial ICA resulting in severe stenosis of the cavernous segment. Right middle cerebral artery: No occlusion or significant stenosis. No aneurysm. Right anterior cerebral artery: No occlusion or significant stenosis. No aneurysm. Left internal carotid artery: Moderate calcified and noncalcified atherosclerotic disease of the left intracranial ICA resulting in moderate stenosis of the cavernous segment. Left middle cerebral artery: No occlusion or significant stenosis. No aneurysm. Left anterior cerebral artery: No occlusion or significant stenosis. No aneurysm. POSTERIOR CIRCULATION: Right vertebral artery: No occlusion or significant stenosis. No aneurysm. Left vertebral artery: No occlusion or significant stenosis. No aneurysm. Basilar artery: Moderate calcified and noncalcified atherosclerotic disease of the basilar artery resulting in severe stenosis. Right posterior cerebral artery: No occlusion or significant stenosis. No aneurysm. Left posterior cerebral artery: No occlusion or significant stenosis. No aneurysm. Brain: No definite mass, mass effect, or midline shift. Cerebral ventricles: No ventriculomegaly. Bones/joints: Unremarkable. No acute fracture. Soft tissues: Unremarkable. IMPRESSION: 1. Moderate to severe calcified and noncalcified atherosclerotic disease of the right intracranial ICA resulting in severe stenosis of the cavernous segment. 2. Moderate calcified and noncalcified atherosclerotic disease of the left intracranial ICA resulting in moderate stenosis of the cavernous segment. 3. Moderate calcified and noncalcified atherosclerotic disease of the basilar artery resulting in severe stenosis.
--- NOTE | 2022-11-29 17:22 | PC.NURSE ---
[facility] [employer] CALL[facility], REPORTS PT UNABLE TO TOLERATE SCAN. DR MAI NOTIFIED, ORDERS FOR ATIVAN, DR MAI STATES IF PT HAS NOT HAD MRI, CANCEL AND HAVE PT REPEAT CT/CTA. RADIOLOGY NOTIFIED
--- NOTE | 2022-11-29 17:42 | PC.NURSE ---
PT RETURNED FROM CT
--- NOTE | 2022-11-29 18:28 | PC.NURSE ---
called [facility] back to let them know that the pt scan was redone and there was not a bleed. [facility] was paging Dr Costello in Neurology to call back and speak with ER Doctor.
[2022-11-29 18:53] LABS: Microscopic, Urine URINE MICROSCOPIC (MICROSCOPIC)
[2022-11-29 18:57] LABS: Appearance,Urine CLEAR (Clear); Bilirubin,Urine Negative (Negative); Blood, Urine 1+ (Negative); Color,Urine YELLOW (Yellow); Glucose,Urine (UA) Negative (Negative); Ketones,Urine Negative (Negative); Leukocyte Esterase,Urine Negative (Negative); Nitrate,Urine Negative (Negative); PH,Urine 7.5 (5.0-8.5); Protein,Urine 2+ (Negative); Specific Gravity, Urine 1.015 (1.005-1.030); Urobilinogen,Urine 0.2 EU/dl (0.2)
--- NOTE | 2022-11-29 18:57 | PC.NURSE ---
spoke with [facility] about this pt for a consult with the ER Doctor/ [facility] put out a call and the Doctor was on another call and would call back as soon as they were done
[2022-11-29 19:23] LABS: RBC,Urine Occasional #/hpf (0-3)
--- NOTE | 2022-11-29 19:27 | PC.NURSE ---
Manual BP 182/92
--- NOTE | 2022-11-29 19:34 | PC.NURSE ---
Called [facility] back again requesting a possible call back time. Advised that he was not sure how long it would be but that we were on the list . RAJ
--- NOTE | 2022-11-29 19:43 | PC.NURSE ---
Willi gtt started @1938 @5mg/hr
--- NOTE | 2022-11-29 19:56 | PC.NURSE ---
Titrated cardene gtt to 7.5mg/hr per mar for SBP 177 at this time
--- NOTE | 2022-11-29 20:00 | PC.NURSE ---
MD Greer on phone w at this time
--- NOTE | 2022-11-29 20:13 | PC.NURSE ---
Cardene gtt titrated to 10mg/hr per MAR for SBP 166
--- NOTE | 2022-11-29 20:14 | PC.NURSE ---
MD Greer on phone luci stone at this time
--- NOTE | 2022-11-29 20:14 | PC.NURSE ---
Speaking to [facility]
--- NOTE | 2022-11-29 20:19 | PC.NURSE ---
Waiting for call back from Dr Helton from [facility]
--- NOTE | 2022-11-29 20:26 | PC.NURSE ---
on phone with dr gerardo @ [facility]
--- NOTE | 2022-11-29 20:39 | PC.NURSE ---
Speaking to [facility] now
--- NOTE | 2022-11-29 20:45 | PC.NURSE ---
rolan farmer d/c per md eller
--- NOTE | 2022-11-29 22:21 | PC.NURSE ---
daughter going home. To call when pt gets transferred. Yareli- [phone]
[2022-11-29 22:31] LABS: POC Glucose,Bedside 117 (70-110)
--- NOTE | 2022-11-29 22:59 | EXP.HP ---
History of Present Illness *Admission Date: 11/29/22 *Reason for visit:: slurring speach *History of present illness: This is 72-year-old male with PMHx of multiples CVA/TIA, paroxysmal A-fib on Xarelto, history of recently diagnosed MGUS, coronary artery disease, sleep apnea presented to ER with possible TIA. Symptoms are similar to prior episodes, one episode happening last week, a couple episodes happening in the prior 2 months. History obatined form ER documentaion, due to patient mentation status and bedside family left for the day. Per ER provider, patient was seen and evaluated at [facility] for similar symptoms a couple months ago. Apparently, patient reports that he was walking to the bathroom at approximately 7 or 7:30 AM, felt generally weak worse on the right side, noticed that he was slurring his words. He went to the ground and was unable to get up due to weakness. His daughter arrived at approximately 10 AM and found him generally weak, but not slurring his words at that time. On arrival patient has no acute complaints. He is being worked up by neurology outpatient for these episodes, has also been evaluated by cardiology. During ER stay patient developed another episode. Current NIH is 10. On exam, patient had left-sided hemineglect, unable to perform extraocular movements, mild dysarthria, no longer fully oriented. Started process for [facility] transfer, due to lack of neuro-intervention capability; for further evaluation given apparent stroke deficits. MRI is pending. [facility] Disclaimer: The information contained in this section may have been updated after the patient was seen, as this information can be updated by other users. Medical History Abnormal nuclear stress test Atypical angina Cardiac dysrhythmia Coronary artery disease Coronary artery stenosis Diabetes Dizziness History of MS (myocardial infarction) History of TIA (transient ischemic attack) HLD (hyperlipidemia) HTN (hypertension) JUSTICE (obstructive sleep apnea) Prostate cancer Surgical History History of cardiac catheterization History of coronary artery stent placement Hx of prostatectomy Family History Brother Colon cancer Other Coronary artery disease Family history of hyperlipidemia Pancreatitis Social History Smoking Status: Never smoker second hand exposure: No alcohol intake: never substance use type: denies use current occupational status: retired Travel in the last 8 weeks: None household members: spouse housing: house lives independently: Yes marital status: current occupational exposures/hazards: No caffeine: Yes special mariangel needs: No agree to transfusion: No do you feel safe at home: Yes victim of physical abuse: No victim of emotional abuse: No victim of sexual abuse: No would you like helpful sources: No Review of Systems Review of Systems Review of systems:: unable to obtain Meds Home Medications and Allergies Home Medications Medication Instructions Recorded Confirmed Type glimepiride 4 mg tablet 4 mg PO BID Diabetes 08/18/20 11/29/22 History metformin 1,000 mg tablet 1,000 mg PO BID Diabetes 08/18/20 11/29/22 History omeprazole 20 mg capsule,delayed 20 mg PO DAILY GERD 08/18/20 11/29/22 History release coenzyme Q10 200 mg/gram oral 200 mg PO DAILY Supplement 11/25/20 11/29/22 History powder (H2Q CoQ10) duloxetine 60 mg capsule,delayed 60 mg PO BID Depression 02/24/21 11/29/22 History release rosuvastatin 20 mg tablet (Crestor) 20 mg PO DAILY Cholesterol #90 tabs 01/17/22 11/29/22 Rx meclizine 25 mg tablet 25 mg PO TID PRN dizziness 08/16/22 11/29/22 History chlorthalidone 25 mg tablet See Rx Instructions .Route 09/20/22 11/29/22 History .COMPLE
--- NOTE | 2022-11-29 23:00 | PC.NURSE ---
pt arrived to floor via stretcher @22:57
[2022-11-30] VITALS: PULSE 98
--- NOTE | 2022-11-30 02:22 | PC.NURSE ---
Received call from [facility] Clinical Command for bed assignment. Patient going to [address], to call report. Relayed information to BROOKLYNN Mcrae as primary RN.
--- NOTE | 2022-11-30 03:26 | EXP.DC.SUM ---
General Admission date:: 11/29/22 Discharge date: 11/30/22 HPI HPI HPI: This is 72-year-old male with PMHx of multiples CVA/TIA, paroxysmal A-fib on Xarelto, history of recently diagnosed MGUS, coronary artery disease, sleep apnea presented to ER with possible TIA. Symptoms are similar to prior episodes, one episode happening last week, a couple episodes happening in the prior 2 months. History obatined form ER documentaion, due to patient mentation status and bedside family left for the day. Per ER provider, patient was seen and evaluated at [facility] for similar symptoms a couple months ago. Apparently, patient reports that he was walking to the bathroom at approximately 7 or 7:30 AM, felt generally weak worse on the right side, noticed that he was slurring his words. He went to the ground and was unable to get up due to weakness. His daughter arrived at approximately 10 AM and found him generally weak, but not slurring his words at that time. On arrival patient has no acute complaints. He is being worked up by neurology outpatient for these episodes, has also been evaluated by cardiology. During ER stay patient developed another episode. Current NIH is 10. On exam, patient had left-sided hemineglect, unable to perform extraocular movements, mild dysarthria, no longer fully oriented. Started process for [facility] transfer, due to lack of neuro-intervention capability; for further evaluation given apparent stroke deficits. MRI is pending. Hospital Course Hospital Course Hospital Course: 72-year-old male with PMHx of multiples CVA/TIA, paroxysmal A-fib on Xarelto, history of recently diagnosed MGUS, coronary artery disease, sleep apnea presented to ER with possible TIA. Initial evaluation was normal . During ER stay patient developed another episode. Current NIH is 10. On exam, patient had left-sided hemineglect, unable to perform extraocular movements, mild dysarthria, no longer fully oriented. Started process for [facility] transfer, due to lack of neuro-intervention capability; for further evaluation given apparent stroke deficits. MRI is pending. not a candidate to thrombolytics, as patient took his DOAC last night. Case discussed with ER provider, and presented to accepting facility. Patient will be admitted awaiting bed availability. Bed became available at accepting facility. Discharged to higher level of care for further management. Rounded on patient after nurse practitioner. Personally examined and interviewed patient. Agree with exam findings and care plan as documented. Exam Data for Last 24 hours Vital signs and Labs for Last 24 Hours: Temp Pulse Resp BP Pulse Ox O2 Del Method 101.3 F H 107 H 24 156/107 H 94 L Room Air 11/29/22 23:00 11/29/22 23:00 11/29/22 23:00 11/29/22 23:00 11/29/22 23:00 11/29/22 23:54 Laboratory Results - last 24 hr 11/29/22 12:30: WBC 12.7 H, RBC 4.49 L, Hgb 11.9 L, Hct 36.7 L, MCV 81.6, MCH 26.5 L, MCHC 32.5, RDW 17.1, Plt Count 241, MPV 8.7, Neut % (Auto) 85.3 H, Lymph % (Auto) 8.6 L, Simpson % (Auto) 5.8, Eos % (Auto) 0.2, Baso % (Auto) 0.2, Neut # (Auto) 10.8 H, Lymph # (Auto) 1.1, Simpson # (Auto) 0.7, Eos # (Auto) 0.0, Baso # (Auto) 0.0, Total Counted 100, Neutrophils % (Manual) 87 H, Band Neutrophils % 5.0, Lymphocytes % (Manual) 3 L, Atypical Lymphs % 1.0, Monocytes % (Manual) 2, Metamyelocytes % 2.0 H, Platelet Estimate Normal, Hypochromasia 1+, Anisocytosis 2+, Microcytosis 1+, Stomatocytes 1+, Sodium 139, Potassium 4.0, Chloride 103, Carbon Dioxide 29, Anion Gap 11.0, BUN 14, Creatinine 1.20, Estimated Creat Clear 71, Estimated GFR 60, Est GFR ( Amer) 72, Glucose 131 H, Calcium 10.5 H, Total Bilirubin 0.4, AST 36, ALT 28, Alkaline Phosphatase 83, Total Protein 8.3 H, Albumin 4.2, Globulin 4.1 H, Albumin/Globulin Ratio 1.0 L 11/29/22 18:45: Urine Color Yellow, Urine Appearance Clear, Urine pH 7.5, Ur Specific [place] 1.015, Urine Protein 2+, Urine Glucose (UA) Negative, Urine Ketones Neg
--- NOTE | 2022-11-30 03:34 | PC.NURSE ---
contacted joanna r/t [facility] of [facility]. new orders per apr.
[2022-11-30 03:39] LABS: POC Glucose,Bedside 57 (70-110)
--- NOTE | 2022-11-30 03:44 | PC.NURSE ---
Daughter called, did not answer, RN left a message stated that patient will be transferred to [facility] to [facility]
[2022-11-30 04:00] VITALS: PULSE 90
[2022-11-30 04:14] LABS: POC Glucose,Bedside 156 (70-110)
--- NOTE | 2022-11-30 04:19 | PC.NURSE ---
[address] Radha[address]
[2022-11-30 06:19] LABS: POC Glucose,Bedside 72 (70-110)
--- NOTE | 2022-11-30 06:52 | PC.NURSE ---
Daughter updated on transfer situation. Left a message stating that transport go pushed back at 8:00 and that we would call her as soon as she transferred.
[2022-11-30 07:27] LABS: Chloride 104 mmol/L (98-107); Potassium 3.5 mmoL/L (3.5-5.1); Sodium 140 mmol/L (136-145)
[2022-11-30 07:29] LABS: Alanine Aminotransferase 22 U/L (12-78); Aspartate Amino Transferase 37 U/L (17-59); Blood Urea Nitrogen 14 mg/dl (9-20); Creatinine Clearance Estimated 69 mL/min (50-200); Estimated Glomerular Filt Rate 60 ml/min (>60); GFR (African American) 72 ML/MIN (>60)
[2022-11-30 07:30] LABS: Albumin Level 4.1 g/dl (3.5-5.0); Alkaline Phosphatase 72 U/L (38-126); Anion Gap 11.5 mEq/L (5-15); Bilirubin,Total 0.3 mg/dl (0.2-1.3); Carbon Dioxide 28 mmol/L (22.0-30.0); Chol/HDL Ratio 4.3 (1-3.5); Cholesterol 143 mg/dl (140-200); Globulin 4.1 g/dL (1.3-3.2); Glucose 75 mg/dl (74-100); HDL Cholesterol 33 mg/dl (40-60); Magnesium 1.9 mg/dl (1.6-2.3); Total Protein,Serum 8.2 g/dl (6.3-8.2); Triglycerides 178 mg/dl (30-150); VLDL Cholesterol 36 mg/dL (0-40)
[2022-11-30 07:36] LABS: Basophils % 0.3 % (0.1-2.0); Eosinophils # 0.1 K/mm3 (0.0-0.4); Eosinophils % 0.8 % (0.1-12.0); Hematocrit 39.6 % (42.0-52.0); Hemoglobin 12.8 g/dL (14.1-18.0); Lymphocytes # 1.2 K/mm3 (0.7-4.5); Lymphocytes % 13.7 % (10-50); Mean Corpuscular HGB Conc 32.2 g/dL (31.8-35.4); Mean Corpuscular Hemoglobin 26.3 pg (27.0-31.2); Mean Corpuscular Volume 81.6 fl (80-94); Mean Platelet Volume 8.5 fl (7.4-10.4); Monocytes # 0.6 K/mm3 (0.1-1.0); Neutrophils # 6.8 K/mm3 (1.8-7.8); Neutrophils % 78.2 % (37.0-80.0); Platelet Count 208 K/mm3 (142-424); Red Blood Count 4.85 M/mm3 (4.60-6.20); White Blood Count 8.7 K/mm3 (4.8-10.8)
[2022-11-30 07:41] LABS: Direct LDL Cholesterol 70.25 mg/dL (100-129)
[2022-11-30 08:00] VITALS: PULSE 80
== END 2022-11-30 08:29 | disposition short-term general hospital (02) ==
LOC: ER 22:28 → 2ND 22:32
PROVIDERS: Emergency Medicine; Admitting Provider Internal Medicine Adolescent Medicine; Emergency Provider Emergency Medicine; PCP Family Medicine; Visit Provider Internal Medicine Adolescent Medicine
DX: G45.8 Other transient cerebral ischemic attacks and related syndromes (principal); R40.4 Transient alteration of awareness; G45.9 Transient cerebral ischemic attack, unspecified; I65.23 Occlusion and stenosis of bilateral carotid arteries; N18.9 Chronic kidney disease, unspecified; Z95.5 Presence of coronary angioplasty implant and graft; I25.10 Atherosclerotic heart disease of native coronary artery without angina pectoris; I10 Essential (primary) hypertension; E78.2 Mixed hyperlipidemia; I48.0 Paroxysmal atrial fibrillation; Z79.01 Long term (current) use of anticoagulants; D47.2 Monoclonal gammopathy; Z79.899 Other long term (current) drug therapy
CPT/HCPCS: 36415; 51702; 70450; 70496; 70498; 71045; 80053; 80061; 81001; 82962; 83735; 85007; 85025; 93005; 99291; G0378; Q9967